=== PATIENT | male | born 1965 | race African-American/Black ===

== ENCOUNTER 2016-05-16 00:53 | Inpatient (IN) | payer MEDICARE, OTHER ==
--- NOTE | 2016-05-16 01:20 | PDOC ---
History of Present Illness - General Chief Complaint: Pain, Acute Stated Complaint: ABD PAIN Time Seen by Provider: 05/16/16 01:12 - History of Present Illness Initial Comments: 05/16/16 01:19 CHIEF COMPLAINT: abd pain HISTORY OF PRESENT ILLNESS: 51 yo M with significant PMH of HTN, HLD, insulin dependent type 2 DM, TIA, chronic pancreatitis, biliary stricture (s/p stent placement) presents to ED with abdominal pain since two days ago. Patient states passed out two days ago and fell down, but but denies any LOC or trauma to his head. Patient denies any fever but reports chills and feeling lightheaded. He also reports chest pain and shortness of breath. Patient states he had not drank alcohol for 7 years but recently started drinking again , including "beers and vodkas"; he is unable to quantify how much he drinks. No recent travel or sick contacts. PAST MEDICAL HISTORY: Denies past medical history FAMILY HISTORY: Denies SOCIAL HISTORY: Current smoker, 1/2 pack daily. Hx of alcohol abuse, "just started drinking again recently". Denies illicit drug use. SURGICAL HISTORY: Denies ALLERGIES: No known drug allergies REVIEW OF SYSTEMS General/Constitutional: Denies fever or chills. HEENT: Denies change in vision. Denies ear pain or discharge. Denies sore throat. Cardiovascular: Chest pain, shortness of breath. Respiratory: Denies cough, wheezing, or hemoptysis. Gastrointestinal: Abdominal pain. Denies nausea, vomiting, diarrhea or constipation. Denies rectal bleeding. Genitourinary: Denies dysuria, frequency, or change in urination. Musculoskeletal: Chronic back pain. Denies joint or muscle swelling or pain. Denies neck or back pain. Skin and breasts: Denies rash or easy bruising. Neurologic: Denies headache, vertigo, loss of consciousness, or loss of sensation. PHYSICAL EXAM General Appearance: Tachycardic to 119. Well-appearing, appropriately dressed. No apparent distress. HEENT: EOMI, PERRLA, normal ENT inspection, normal voice, TMs normal, pharynx normal. No conjunctival pallor. No photophobia, scleral icterus. Neck: Supple. Trachea midline. No tenderness, rigidity, carotid bruit, stridor , lymphadenopathy, or thyromegaly. Respiratory/Chest: Lungs CTAB. Cardiovascular: RRR. S1, S2. Vascular Pulses: Dorsalis-Pedis (R): 2+, Dorsalis-Pedis (L): 2+ Gastrointestinal/Abdominal: Marked tenderness to abdomen, more localized to RLQ , RUQ, and LUQ. Normal bowel sounds. Abdomen soft, non-distended. No tenderness or rebound tenderness. No organomegaly, pulsatile mass, guarding, hernia, hepatomegaly, splenomegaly. Lymphatic: No adenopathy, tenderness. Musculoskeletal/Extremities: Normal inspection. FROM of all extremities, normal capillary refill. Pelvis Stable. No CVA tenderness. No tenderness to extremities, pedal edema, swelling, erythema or deformity. Integumentary: Appropriate color, dry, warm. 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 Fully oriented, alert. Appropriate mood/affect. Motor strength 5/5. No appreciable EOM palsy, facial droop or sensory deficit. Past History - Past Medical History Allergies/Adverse Reactions: Allergies Allergy/AdvReac Type Severity Reaction Status Date / Time atorvastatin calcium Allergy Hives Verified 05/16/16 00:59 [From Lipitor] lisinopril Allergy Verified 05/16/16 00:59 Home Medications: Ambulatory Orders Famotidine [Pepcid] 40 mg PO DAILY 08/15/15 Amlodipine Besylate [Norvasc -] 10 mg PO DAILY 05/16/16 Diazepam 5 mg PO ASDIR PRN 05/16/16 Insulin Glargine,Hum.rec.anlog [Lantus Solostar PEN (NF)] 20 units SQ AM Losartan Potassium [Cozaar -] 50 mg PO DAILY 05/16/16 Oxycodone HCl [Roxicodone] 5 mg PO ASDIR 05/16/16 Anemia: No Asthma: No Cancer: No Cardiac Disorders: Yes (IRREGULAR HEART BEAT) CVA: Yes (TIA) COPD: No CHF: No Dementia: No Diabetes: Yes GI Disorders: Yes (GASTRIC ULCER; BILE DUCT STRICTURE-STENTS) Disorders: No HTN: Yes Hypercholesterolemia: Yes Liver Disease: No Suicide Attempt (Hx): No Seizures: No Thyroid Disease: No - Surgical History Abdominal Surgery: Yes Appendectomy: No Cardiac Surgery: No Cholecystectomy: Yes (BILIARY 3 STENTS) Lung Surgery: No Neurologic Surgery: No Orthopedic Surgery: No - Psycho/Social/Smoking Cessation Hx Anxiety: No Suicidal Ideation: No Smoking Status: No Smoking History: Never smoked Years of Tobacco Use: 30 Have you smoked in the past 12 months: Yes Number of Cigarettes Smoked Daily: 7 Cigars Per Day: 0 'Breaking Loose' booklet given: 12/31/12 Hx Alcohol Use: Yes (beer, vodka) Drug/Substance Use Hx: No Substance Use Type: Alcohol Hx Substance Use Treatment: No *Physical Exam - Vital Signs Last Vital Signs Temp Pulse Resp BP Pulse Ox 98.1 F 119 H 18 136/93 98 05/16/16 01:02 05/16/16 01:02 05/16/16 01:02 05/16/16 01:02 05/16/16 01:02 ED Treatment Course - LABORATORY CBC & Chemistry Diagram: 05/16/16 01:33 05/16/16 01:33 Medical Decision Making - Medical Decision Making 05/16/16 04:43 51 yo M with significant PMH of HTN, HLD, insulin dependent type 2 DM, TIA, biliary stricture (s/p stent placement) presents to ED with abdominal pain since two days ago. -CBC, CMP, PT/INR, Mg, card profile -CXR, EKG DDx includes but is not limited to PE, [place], pancreatitis, appendicitis, mesenteric ischemia, gastroenteritis. Patient tachycardic to 119 with SOB and chest pain, will order chest CTA to r/o PE. Patient's abdomen markedly tender, will order abdomen & pelvis CT to eval for mesenteric ischemia. Labs: WBC 10.6 K+ 3.3 Glucose 365 Bili 1.8 Mg 1.3 -1 mg Mg sulfate IVPB -6 units insulin subQ -NS + 10KCl @ 75cc/hr CT results: IMPRESSION No evidence of a large central pulmonary embolism. Limited exam without arterial phase contrast enhancement of the aorta and aortic branches demonstrates no significant calcified arteriosclerotic narrowing of the mesenteric vessels to suggest mesenteric ischemia. Moderately dilated pancreatic duct consistent with partial obstruction of the pancreatic duct may be due to chronic scarring with multiple calcifications throughout the pancreas consistent with chronic recurrent pancreatitis. Moderately dilated intrahepatic bile ducts and common bile duct consistent with partial high grade obstruction of the distal common bile duct may be due to chronic scarring. If clinically indicated followup outpatient magnetic resonance cholangiopancreatogram MRCP protocol MRI abdomen may be needed. Mild wall thickening of the antropyloric stomach and duodenum consistent with mild infectious or inflammatory gastroduodenitis. Read by: Rome Whitaker MD Will admit for inpatient services for chronic recurrent pancreatitis. Discussed case with admitting MD Stephens who accepts patient to med/surg floor for inpatient services. *DC/Admit/Observation/Transfer Diagnosis at time of Disposition: Chronic alcoholic pancreatitis, Common bile duct (CBD) stricture, Hyperglycemia - Discharge Dispostion Admit: Yes - Referrals Referrals: Domenica Chaves MD [Primary Care Provider] -
--- NOTE | 2016-05-16 01:43 | PDOC ---
[id number] 136/93 98 05/16/16 01:02 05/16/16 01:02 05/16/16 01:02 05/16/16 01:02 05/16/16 01:02 ED Treatment Course - LABORATORY CBC & Chemistry Diagram: 05/16/16 01:33 05/16/16 01:33 Medical Decision Making - Medical Decision Making 05/16/16 01:43 agree with care from HANNAH Guerrier *DC/Admit/Observation/Transfer Diagnosis at time of Disposition: Chronic alcoholic pancreatitis, Common bile duct (CBD) stricture, Hyperglycemia - Referrals Referrals: Domenica Chaves MD [Primary Care Provider] -
[2016-05-16 01:44] LABS: BASOPHIL 0.7 % (0-2.0); EOSINOPHIL 2.8 % (0-4.5); MCH 29.9 pg (25.7-33.7); MCHC 33.5 g/dl (32.0-35.9); MEAN CELL VOLUME 89.2 fl (80-96); MEAN PLT VOLUME 8.3 fl (7.5-11.1); NEUTROPHILS 72.2 % (42.8-82.8); PLATELET COUNT 175 K/MM3 (134-434); RDW 16.6 % (11.9-15.9); WHITE BLOOD COUNT 10.7 K/mm3 (4.0-10.0)
[2016-05-16 01:57] LABS: INR 1.05 (0.82-1.09); PROTHROMBIN TIME (PATIENT) 11.6 SEC (9.98-11.88)
[2016-05-16 01:59] LABS: ACTIVATED PTT 33.8 SECONDS (26.9-34.4)
[2016-05-16] MEDS ORDERED: morphine CARPU-JECT 2 MG/1 ML DISP.SYRIN IVPUSH ONE (02:04)
[2016-05-16] MEDS ORDERED: morphine CARPU-JECT 2 MG/1 ML DISP.SYRIN ONE ×2 (02:10→06:58)
[2016-05-16 02:16] LABS: TROPONIN I < 0.02 ng/ml (0.00-0.05)
[2016-05-16 02:27] LABS: ALBUMIN 3.7 g/dl (3.4-5.0); ANION GAP 14 (8-16); BILIRUBIN,TOTAL 1.8 mg/dL (0.2-1.0); CALCIUM 8.6 mg/dL (8.5-10.1); CO2 26 mmol/L (21-32); SGOT/AST 35 U/L (15-37); SGPT/ALT 62 U/L (12-78); TOT PROT 7.2 g/dl (6.4-8.2)
[2016-05-16 02:28] LABS: ALK PHOS 127 U/L (45-117)
[2016-05-16 02:29] LABS: GLUCOSE,RANDOM 365 mg/dL (74-106)
[2016-05-16] MEDS ORDERED: MAGNESIUM SULF 50% (8.12 MEQ/2 ML-1 GM VIAL) IVPB ONE (02:51)
[2016-05-16] MEDS ORDERED: INSULIN REGULAR HUMAN 100 UNITS/ML *VIAL SQ ONE (02:54)
[2016-05-16] MEDS ORDERED: POTASSIUM CHLORIDE 10 MEQ in SODIUM CHLORIDE 1,000 ML IVPB SCH (03:00)
[2016-05-16] MEDS ORDERED: HYDROmorphone HCL CARPU-JECT 1 MG/1 ML DISP.SYRIN IVPB ONE (03:36)
[2016-05-16] MEDS ORDERED: MAGNESIUM SULF 50% (8.12 MEQ/2 ML-1 GM VIAL) ONE (04:00)
[2016-05-16] MEDS ORDERED: HYDROmorphone HCL CARPU-JECT 2 MG/1 ML DISP.SYRIN ONE (04:00)
[2016-05-16] MEDS ORDERED: INSULIN REGULAR HUMAN 100 UNITS/ML *VIAL ONE (04:02)
--- NOTE | 2016-05-16 05:14 | PN ---
Teaching Attending Note Name of Resident: Jose Charles ATTENDING PHYSICIAN STATEMENT I saw and evaluated the patient. I reviewed the resident's note and discussed the case with the resident. I agree with the resident's findings and plan as documented. SUBJECTIVE: 51 M with pmhx. of chronic pancreatitis, HTN, DM II, TIA, biliary stricture (s/ p stent) who presents with severe abdominal pain. Pain located in the epigastric region, with radiation to bilateral sides. No fevers, chills, cp or pressure. No N/V/D. OBJECTIVE: Physical: VS: Vital Signs Period Temp Pulse Resp BP Sys/Nguyen Pulse Ox Last 24 Hr 98.1 F 90-119 18 136/93 97-98 GEN: NAD, Resting in bed HEENT: NCAT, PERRL CARD: RRR S1, S2 RESP: CTAB ABD: Right upper quadrant tenderness, + Lerner;s. BSX4, Non-Distended EXT: - C/C/E LABS/IMAGING: CBCD WBC 10.7 K/mm3 (4.0-10.0) H 05/16/16 01:33 RBC 4.62 M/mm3 (4.00-5.60) 05/16/16 01:33 Hgb 13.8 GM/dL (11.7-16.9) D 05/16/16 01:33 Hct 41.2 % (35.4-49) 05/16/16 01:33 MCV 89.2 fl (80-96) 05/16/16 01:33 MCHC 33.5 g/dl (32.0-35.9) 05/16/16 01:33 RDW 16.6 % (11.9-15.9) H 05/16/16 01:33 Plt Count 175 K/MM3 (134-434) D 05/16/16 01:33 MPV 8.3 fl (7.5-11.1) 05/16/16 01:33 CMP Sodium 134 mmol/L (136-145) L 05/16/16 01:33 Potassium 3.3 mmol/L (3.5-5.1) L D 05/16/16 01:33 Chloride 94 mmol/L (98-107) L D 05/16/16 01:33 Carbon Dioxide 26 mmol/L (21-32) 05/16/16 01:33 Anion Gap 14 (8-16) 05/16/16 01:33 BUN 9 mg/dL (7-18) D 05/16/16 01:33 Creatinine 1.0 mg/dL (0.7-1.3) 05/16/16 01:33 Creat Clearance w eGFR > 60 (>60) 05/16/16 01:33 Random Glucose 365 mg/dL (74-106) H* D 05/16/16 01:33 Calcium 8.6 mg/dL (8.5-10.1) 05/16/16 01:33 Total Bilirubin 1.8 mg/dL (0.2-1.0) H D 05/16/16 01:33 AST 35 U/L (15-37) D 05/16/16 01:33 ALT 62 U/L (12-78) D 05/16/16 01:33 Alkaline Phosphatase 127 U/L (45-117) H D 05/16/16 01:33 Total Protein 7.2 g/dl (6.4-8.2) 05/16/16 01:33 Albumin 3.7 g/dl (3.4-5.0) 05/16/16 01:33 CARDIAC ENZYMES Creatine Kinase 513 IU/L (39-308) H D 05/16/16 01:33 Troponin I < 0.02 ng/ml (0.00-0.05) 05/16/16 01:33 CT Angio/abd-Mod. Gallbladder distension, mod. dilated panc. duct/intrahepatic ducts bile ducts. Mod CBD dilitation c/w partial high grade obstruction. Gastroduodenitis. ASSESSMENT AND PLAN: 51 M with pmhx of chronic pancreatitis, DMII, TIA, Biliary stricture (s/p stent ) who presents with abdominal pain, found to have biliary stricture and gastroduodenitis. 1.) Abdominal Pain - CBD Obstruction and ?acute choley - RUQ US - Sam grade obstruction of CBD - Sx. Consult - ERCP - GI consult - Morphine prn pain - NPO - Type and Screen/Coags - IVF 2.) Gastroduodenitis - Levaquin/Flagyl 3.) DM - RAISS - FS Q4 4.) Hypokalemia/Hypomagnesemia - Repleted 4.) DVT PPx: Low Risk - SCDs F: IVF E: Trend N: NPO Rest agree with resident note Admit to Med Sx:
[2016-05-16] MEDS ORDERED: morphine CARPU-JECT 2 MG/1 ML DISP.SYRIN IVPUSH PRN (05:37)
--- NOTE | 2016-05-16 06:03 | HP ---
CHIEF COMPLAINT: Abdominal pain. PCP: Domenica Chaves HISTORY OF PRESENT ILLNESS: 51 yo M with significant PMHx of DM, HTN, and chronic pancreatits presents with two day history of abdominal pain. He describes 10/10 constant non-radiating "twisting" epigastric pain. No aggrivating or alleviating factors. Pain also accompanied by 3-4 non bloody loose BM's daily for past 3 days and anorexia. He states that when he drinks water he also gets bilateral flank pain. Was admitted in July 2015 for acute cholecystitis and treated medically but never followed up for removal of gallbladder. Also had billiary stricture stented last year. Recently started drinking ETOH again after 7 mo. abstinence. Denies fever, recent illness, travel , CP, [place], SOB,palpitations, n/v. ER course was notable for: (1) CT abdomen -shows markedly dialated pancreatic duct consistant with partial obstruction and mod dilated intrahepatic bile ducts . (2) CTA - no signs of PE (3) EKG -NSR Recent Travel: Denies PAST MEDICAL HISTORY: DM, HTN , chronic pancreatitis. PAST SURGICAL HISTORY: stents for billiary stricture. Social History: Smokin/2 PPD Alcohol: History of abuse quit for last 7 mo. but restarted 7 days ago. last drink 3 days ago. Drugs: denies Family History: Non contributory. Allergies atorvastatin calcium [From Lipitor] Allergy (Verified 05/16/16 00:59) Hives lisinopril Allergy (Verified 05/16/16 00:59) QUESTIONABLE-SWOLLEN LIPS HOME MEDICATIONS: Home Medications Medication Instructions Recorded Famotidine [Pepcid] 40 mg PO DAILY 08/15/15 Amlodipine Besylate [Norvasc -] 10 mg PO DAILY 05/16/16 Diazepam 5 mg PO ASDIR PRN 05/16/16 Insulin Glargine,Hum.rec.anlog 20 units SQ AM 05/16/16 [Lantus Solostar PEN (NF)] Losartan Potassium [Cozaar -] 50 mg PO DAILY 05/16/16 Oxycodone HCl [Roxicodone] 5 mg PO ASDIR 05/16/16 REVIEW OF SYSTEMS CONSTITUTIONAL: Absent: fever, chills, diaphoresis, generalized weakness, malaise, loss of appetite, weight change HEENT: Absent: rhinorrhea, nasal congestion, throat pain, throat swelling, difficulty swallowing, mouth swelling, ear pain, eye pain, visual changes CARDIOVASCULAR: Absent: chest pain, syncope, palpitations, irregular heart rate, lightheadedness , peripheral edema RESPIRATORY: Absent: cough, shortness of breath, dyspnea with exertion, orthopnea, wheezing, stridor, hemoptysis GASTROINTESTINAL:(+)abdominal pain,diarrhea Absent: , abdominal distension, nausea, vomiting, , constipation, melena, hematochezia GENITOURINARY: Absent: dysuria, frequency, urgency, hesitancy, hematuria, flank pain, genital pain MUSCULOSKELETAL: Absent: myalgia, arthralgia, joint swelling, back pain, neck pain SKIN: Absent: rash, itching, pallor HEMATOLOGIC/IMMUNOLOGIC: Absent: easy bleeding, easy bruising, lymphadenopathy, frequent infections ENDOCRINE: Absent: unexplained weight gain, unexplained weight loss, heat intolerance, cold intolerance NEUROLOGIC: Absent: headache, focal weakness or paresthesias, dizziness, unsteady gait, seizure, mental status changes, bladder or bowel incontinence PSYCHIATRIC: Absent: anxiety, depression, suicidal or homicidal ideation, hallucinations. PHYSICAL EXAMINATION Vital Signs - 24 hr 05/16/16 05/16/16 01:02 04:11 Temperature 98.1 F Pulse Rate 119 H 90 Respiratory 18 Rate Blood Pressure 136/93 O2 Sat by Pulse 98 97 Oximetry (%) GENERAL: Awake, alert, and fully oriented, in mild distress. HEAD: Normal with no signs of trauma. EYES: Pupils equal, round and reactive to light, extraocular movements intact, sclera anicteric, conjunctiva clear. EARS, NOSE, THROAT: Ears normal, nares patent, oropharynx clear without exudates. Moist mucous membranes. NECK: Normal range of motion, supple without lymphadenopathy, JVD, or masses. LUNGS: Breath sounds equal, clear to auscultation bilaterally. No wheezes, and no crackles. No accessory muscle use. HEART: Regular rate and rhythm, normal S1 and S2 without murmur, rub or gallop. ABDOMEN: Soft, significant epigastric and RUQ tenderness, (+)webb sign, mildlydistended, normoactive bowel sounds, no guarding, no rebound, no masses. No hepatomegaly or splenomegaly. MUSCULOSKELETAL: Normal range of motion at all joints. No bony deformities or tenderness. No CVA tenderness. UPPER EXTREMITIES: 2+ pulses, warm, well-perfused. No cyanosis. No clubbing. No peripheral edema. LOWER EXTREMITIES: 2+ pulses, warm, well-perfused. No calf tenderness. No peripheral edema. NEUROLOGICAL: Cranial nerves II-XII intact. Normal speech. gait not observed PSYCHIATRIC: Cooperative. Good eye contact. Appropriate mood and affect. SKIN: Warm, dry, normal turgor, no rashes or lesions noted. Laboratory Results - last 24 hr 05/16/16 05/16/16 05/16/16 01:33 01:33 01:33 WBC 10.7 H RBC 4.62 Hgb 13.8 D Hct 41.2 MCV 89.2 MCHC 33.5 RDW 16.6 H Plt Count 175 D MPV 8.3 Neutrophils % 72.2 D Lymphocytes % 19.8 D Monocytes % 4.5 Eosinophils % 2.8 Basophils % 0.7 INR 1.05 PTT (Actin FS) 33.8 Sodium 134 L Potassium 3.3 L D Chloride 94 L D Carbon Dioxide 26 Anion Gap 14 BUN 9 D Creatinine 1.0 Creat Clearance w eGFR > 60 Random Glucose 365 H* D Calcium 8.6 Magnesium Total Bilirubin 1.8 H D AST 35 D ALT 62 D Alkaline Phosphatase 127 H D Creatine Kinase Creatine Kinase Index CK-MB (CK-2) CK-MB (CK-2) Rel Index Troponin I Total Protein 7.2 Albumin 3.7 Lipase Blood Type Antibody Screen 05/16/16 05/16/16 05/16/16 01:33 01:33 01:33 WBC RBC Hgb Hct MCV MCHC RDW Plt Count MPV Neutrophils % Lymphocytes % Monocytes % Eosinophils % Basophils % INR PTT (Actin FS) Sodium Potassium Chloride Carbon Dioxide Anion Gap BUN Creatinine Creat Clearance w eGFR Random Glucose Calcium Magnesium 1.3 L D Total Bilirubin AST ALT Alkaline Phosphatase Creatine Kinase 513 H D Creatine Kinase Index 0.5 CK-MB (CK-2) 2.608 CK-MB (CK-2) Rel Index Troponin I < 0.02 Total Protein Albumin Lipase Blood Type O POSITIVE Antibody Screen Negative 05/16/16 05/16/16 01:33 01:33 WBC RBC Hgb Hct MCV MCHC RDW Plt Count MPV Neutrophils % Lymphocytes % Monocytes % Eosinophils % Basophils % INR PTT (Actin FS) Sodium Potassium Chloride Carbon Dioxide Anion Gap BUN Creatinine Creat Clearance w eGFR Random Glucose Calcium Magnesium Total Bilirubin AST ALT Alkaline Phosphatase Creatine Kinase Creatine Kinase Index CK-MB (CK-2) CK-MB (CK-2) Rel Index Cancelled Troponin I Total Protein Albumin Lipase 155 Blood Type Antibody Screen ASSESSMENT/PLAN: 51 yo M with significant PMHx of DM, HTN, and chronic pancreatitis admitted for possible gastroduodenitis and cholecystits. Neuro: * Pain control 1 gm morphine Q4PRN * AAO x3 Pulm: * Supplemental O2 PRN * maintain O2 sat >90% CV: * BP home meds held for possible surgery * will resume once seen by GI and surgery. GI: pancreatitis/ cholecystitis. * Seen by Dr. Torres in past --consulted * CT abdomen shows markedly dialated pancreatic duct consistent with partial obstruction and mod dilated intrahepatic bile ducts. Gastroduodenitis. * RUQ US odered to r/o acute cholecystitis. * Surgery consulted-- Dr. Andujar * Repeat Amylase and lipase. * NPO for now. * Started on Levaquin and Flagyl for gastroduodenitis seen on CT. ENDO: DM * ADA diet after seen by surgery * BGM ACHS * ISS with novolog ACHS. DVT/ GI prophylaxis: * Heparin on hold for possible procedure SCD bilat. * protonix 40 mg HS F/E/N * LR @83 ml/hr.start multivitamin once eating given recent h/o ETOH abuse. * repeat AM labs. * NPO for now. DISPO: Admitt to med/Surg Problem List - Problem (1) Chronic alcoholic pancreatitis (2) Gastroduodenitis Code(s): K29.90 - GASTRODUODENITIS, UNSPECIFIED, WITHOUT BLEEDING (3) Hyperglycemia (4) Cholecystitis, acute (5) Diabetes (6) HTN (hypertension) (7) Hypokalemia (8) Hypomagnesemia (9) DVT prophylaxis Visit type - Emergency Visit Emergency Visit: Yes Care time: The patient presented to the Emergency Department on the above date and was hospitalized for further evaluation of their emergent condition. - New Patient This patient is new to me today: Yes Date on this admission: 05/16/16 - Critical Care Critical Care patient: No
[2016-05-16] MEDS ORDERED: LACTATED RINGERS SOLUTION 1,000 ML IV SCH ×2 (06:15→10:36)
[2016-05-16] MEDS ORDERED: KCL 10 MEQ IVPB 100 ML IVPB ONE (06:15)
[2016-05-16] MEDS ORDERED: METRONIDAZOLE 500 MG PREMIXED 100 ML IVPB ONE (06:49)
[2016-05-16] MEDS: METRONIDAZOLE 500 MG PREMIXED 100 ML IVPB SCH ×2 (06:55→08:51)
[2016-05-16 07:56] LABS: INR 1.06 (0.82-1.09); PROTHROMBIN TIME (PATIENT) 11.7 SEC (9.98-11.88)
[2016-05-16 07:59] LABS: ACTIVATED PTT 31.4 SECONDS (26.9-34.4)
--- NOTE | 2016-05-16 08:47 | PN ---
Addendum entered and electronically signed by Will Delacruz RES 05/16/16 16:12 : Spoke with patient again at approximately 3:30 PM. Pt was tolerating clear liquid diet. No issues with diet. Mild RUQ pain upon palpation. Pt states he will be refusing labs tomorrow. I spoke to him and told him the importance of the labs and he stated that if he did not feel well tomorrow he would be ok with getting labs done but at this time will most likely be refusing blood draws. Original Note: <Will Delacruz - Last Filed: 05/16/16 11:23> Physical Exam: SUBJECTIVE: Patient seen and examined at bedside. Pt feels better currently and says he is very hungry. States he still has some abdominal pain and during ultrasound he was having pain when probe was pressed into abdomen. He states he began drinking alcohol again about a week ago due to stress (after not drinking for 7 months). Pt denies N/V/F/C, SOB, CP currently. OBJECTIVE: Vital Signs Temperature 98.6 F 05/16/16 09:00 Pulse Rate 100 H 05/16/16 09:00 Respiratory Rate 18 05/16/16 09:00 Blood Pressure 141/91 05/16/16 09:00 O2 Sat by Pulse Oximetry (%) 98 05/16/16 07:05 GENERAL: The patient is awake, alert, and fully oriented, in no acute distress. HEAD: Normal with no signs of trauma. EYES: PERRL, extraocular movements intact. No ptosis. ENT: Ears normal, nares patent, moist mucous membranes. NECK: Trachea midline, full range of motion LUNGS: Breath sounds equal, clear to auscultation bilaterally, no wheezes, no crackles, no accessory muscle use. HEART: Regular rate and rhythm, S1, S2 without murmur, rub or gallop. ABDOMEN: mild tenderness in epigastric region, normoactive bowel sounds EXTREMITIES: 2+ pulses, warm, well-perfused, no edema. NEUROLOGICAL: Normal speech, gait not observed. PSYCH: Normal mood, normal affect. SKIN: Warm, dry, normal turgor, no rashes or lesions noted Laboratory Results - last 24 hr 05/16/16 05/16/16 07:20 07:20 INR 1.06 PTT (Actin FS) 31.4 Lactic Acid 1.627 CBCD WBC 10.7 K/mm3 (4.0-10.0) H 05/16/16 01:33 RBC 4.62 M/mm3 (4.00-5.60) 05/16/16 01:33 Hgb 13.8 GM/dL (11.7-16.9) D 05/16/16 01:33 Hct 41.2 % (35.4-49) 05/16/16 01:33 MCV 89.2 fl (80-96) 05/16/16 01:33 MCHC 33.5 g/dl (32.0-35.9) 05/16/16 01:33 RDW 16.6 % (11.9-15.9) H 05/16/16 01:33 Plt Count 175 K/MM3 (134-434) D 05/16/16 01:33 MPV 8.3 fl (7.5-11.1) 05/16/16 01:33 CMP Sodium 134 mmol/L (136-145) L 05/16/16 01:33 Potassium 3.3 mmol/L (3.5-5.1) L D 05/16/16 01:33 Chloride 94 mmol/L (98-107) L D 05/16/16 01:33 Carbon Dioxide 26 mmol/L (21-32) 05/16/16 01:33 Anion Gap 14 (8-16) 05/16/16 01:33 BUN 9 mg/dL (7-18) D 05/16/16 01:33 Creatinine 1.0 mg/dL (0.7-1.3) 05/16/16 01:33 Creat Clearance w eGFR > 60 (>60) 05/16/16 01:33 Random Glucose 365 mg/dL (74-106) H* D 05/16/16 01:33 Calcium 8.6 mg/dL (8.5-10.1) 05/16/16 01:33 Total Bilirubin 1.8 mg/dL (0.2-1.0) H D 05/16/16 01:33 AST 35 U/L (15-37) D 05/16/16 01:33 ALT 62 U/L (12-78) D 05/16/16 01:33 Alkaline Phosphatase 127 U/L (45-117) H D 05/16/16 01:33 Total Protein 7.2 g/dl (6.4-8.2) 05/16/16 01:33 Albumin 3.7 g/dl (3.4-5.0) 05/16/16 01:33 CARDIAC ENZYMES Creatine Kinase 513 IU/L (39-308) H D 05/16/16 01:33 Troponin I < 0.02 ng/ml (0.00-0.05) 05/16/16 01:33 Imaging: CT abd: Image reviewed, report reviewed CTA chest: image reviewed, report reviewed RUQ US: image reviewed, report reviewed Active Medications Generic Name Dose Route Start Last Admin Trade Name Freq PRN Reason Stop Dose Admin Metronidazole 100 mls @ 100 mls/hr 05/16/16 06:00 05/16/16 06:55 Flagyl 500mg Premixed Ivpb - IVPB 100 mls/hr Q6H-IV DONOVAN Administration Levofloxacin 150 mls @ 150 mls/hr 05/16/16 06:00 Levaquin 750 Mg Premixed Ivpb - IVPB DAILY DONOVAN Lactated Ringer's 1,000 mls @ 83 mls/hr 05/16/16 06:15 05/16/16 06:34 Lactated Ringers Solution IV 83 mls/hr ASDIR DONOVAN Administration Morphine Sulfate 1 mg 05/16/16 05:37 05/16/16 07:04 Morphine Injection - IVPUSH 1 mg Q4H PRN Administration PAIN Pantoprazole Sodium 40 mg 05/16/16 10:00 Protonix - PO DAILY DONOVAN ASSESSMENT/PLAN: 51 y/o M with sig PMH of DM, HTN, chronic pancreatitis, biliary stricture s/p stent (2015), presented to ER with abd pain for 3 days. Admitted for acute on chronic pancreatits vs cholecystitis. -Abd pain secondary to Acute on chronic pancreatitis vs acute cholecystitis vs dilated CBD -Cholecystitis unlikely at this time due to no evidence of cholecystitis ( some sludge and mild distention noted on CT abd) or gallstones on RUQ U/S and CT abd. -Acute on chronic pancreatitis - pt has hx of pancreatitis, multiple calcifications in pancreas, dilated pancreatic duct (5cm) seen in CT abd -Lipase 155, but may be wnl due to chronic pancreatitis -CBD dilated at 11 mm as seen on RUQ US and CT abd -possibly ERCP or MRCP as per GI recommendations -GI consulted -Surgery on board -Will need lap reinaldo at tertiary center. -NPO currently, LR @ 150 ml/hr -ABx stopped as pt is afebrile, white count slightly elevated, does not seem like an infective process at this time -pain control with morphine 1 mg iv q4h prn -HTN -home meds held currently due to NPO -DM -ISS, BGMs bid while NPO -DVT ppx -SCDs, Hep held -GI ppx -Protonix -FEN -LR @ 150 ml/hr -Hypokalemia (repleted), Hyponatremia, hypochloremia, monitor lytes -NPO -Dispo: -Monitor floors Problem List - Problems (1) Chronic alcoholic pancreatitis Code(s): K86.0 - ALCOHOL-INDUCED CHRONIC PANCREATITIS (2) Common bile duct (CBD) stricture Code(s): K83.1 - OBSTRUCTION OF BILE DUCT (3) HTN (hypertension) Code(s): I10 - ESSENTIAL (PRIMARY) HYPERTENSION Qualifiers: Hypertension type: essential hypertension Qualified Code(s): I10 - Essential (primary) hypertension (4) Hyperglycemia Code(s): R73.9 - HYPERGLYCEMIA, UNSPECIFIED (5) Hypokalemia Code(s): E87.6 - HYPOKALEMIA (6) Hypomagnesemia Code(s): E83.42 - HYPOMAGNESEMIA (7) Abdominal pain Code(s): R10.9 - UNSPECIFIED ABDOMINAL PAIN (8) Hyponatremia Code(s): E87.1 - HYPO-OSMOLALITY AND HYPONATREMIA Visit type - Emergency Visit Emergency Visit: Yes ED Registration Date: 05/16/16 Care time: The patient presented to the Emergency Department on the above date and was hospitalized for further evaluation of their emergent condition. - New Patient This patient is new to me today: Yes Date on this admission: 05/16/16 - Critical Care Critical Care patient: No <Mani Sweeney - Last Filed: 05/16/16 12:20> Physical Exam: ATTENDING PHYSICIAN STATEMENT I saw and evaluated the patient. I reviewed the resident's note and discussed the case with the resident. I agree with the resident's findings and plan as documented. SUBJECTIVE: seen and evaluated at the bedside OBJECTIVE: mild mid-epigastric tenderness to palpation; no guarding no rebound ASSESSMENT AND PLAN: 51 yo M with significant PMHx of DM, HTN, and chronic pancreatits admitted for severe abdominal pain Abd Pain -was initially thought to be acute on chronic pancreatitis (would not expect marked elevated lipase with chronic pancreatitis) -GI consult greatly appreciated; GI attending believes that because of the rapidity of improvement that most likely cause was gastritis -now on liquid diet and to advance to low fat diet for dinner -surgery consult greatly appreciated as well
[2016-05-16] MEDS ORDERED: HEPARIN NA (PORCINE) 5,000 UNITS/ML 1ML VIAL SQ SCH (10:00)
[2016-05-16] MEDS: LEVOFLOXACIN 750 MG IVPB 150 ML IVPB SCH ×2 (10:19→10:20)
[2016-05-16] MEDS: PANTOPRAZOLE 40 MG TABLET (FP) PO SCH (10:19)
--- NOTE | 2016-05-16 11:00 | CONSULT ---
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 (transient left hemiparesis in 1998) Cardio/Vascular: Yes: HTN, Hyperlipdemia Gastrointestinal: Yes: Pancreatitis, Peptic Ulcer Disease, Other (recurrent choledocholithiasis, biliary pancreatitis and CBD stricture) Musculoskeletal: Yes: Chronic low back pain (disabled by lumbar disc disease) Endocrine: Yes: Diabetes Mellitus (insulin dependent) - Past Surgical History Past Surgical History: Yes: Upper Endoscopy - Alcohol/Substance Use Hx Alcohol Use: Yes (beer, vodka) - Smoking History Smoking history: Never smoked Have you smoked in the past 12 months: Yes Aproximately how many cigarettes per day: 7 - Social History Usual Living Arrangement: With Significant Other ADL: Independent 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 History of Recent Travel: No Home Medications - Allergies Allergies/Adverse Reactions: Allergies Allergy/AdvReac Type Severity Reaction Status Date / Time atorvastatin calcium Allergy Hives Verified 05/16/16 00:59 [From Lipitor] lisinopril Allergy Verified 05/16/16 00:59 - Home Medications Home Medications: Ambulatory Orders Famotidine [Pepcid] 40 mg PO DAILY 08/15/15 Amlodipine Besylate [Norvasc -] 10 mg PO DAILY 05/16/16 Diazepam 5 mg PO ASDIR PRN 05/16/16 Insulin Glargine,Hum.rec.anlog [Lantus Solostar PEN (NF)] 20 units SQ AM Losartan Potassium [Cozaar -] 50 mg PO DAILY 05/16/16 Oxycodone HCl [Roxicodone] 5 mg PO ASDIR 05/16/16 Family Disease History - Family Disease History Family Disease History: Diabetes: Father (CVA, OMS), Mother, Heart Disease: Father, CA: Son (Anderson Sarcoma), Other: Father Review of Systems - Review of Systems Constitutional: denies: Chills, Fever Neck: reports: No Symptoms Cardiovascular: denies: Chest Pain Respiratory: denies: Cough Gastrointestinal: reports: Abdominal Pain. denies: Nausea, Vomiting Genitourinary: reports: No Symptoms Neurological: denies: Change in LOC Pain Intensity: 4 Physical Exam Vital Signs: Vital Signs Temperature 98.4 F 05/16/16 07:05 Pulse Rate 98 H 05/16/16 07:05 Respiratory Rate 17 05/16/16 07:05 Blood Pressure 131/78 05/16/16 07:05 O2 Sat by Pulse Oximetry (%) 98 05/16/16 07:05 Constitutional: Yes: No Distress, Calm Neck: Yes: Supple Cardiovascular: Yes: Regular Rate and Rhythm Respiratory: Yes: Diminished Gastrointestinal: Yes: Soft, Tenderness (Minimal epigastric tenderness). No: Distention, Tenderness, Rebound Neurological: Yes: Alert, Oriented Labs: CBC,CMP WBC 10.7 K/mm3 (4.0-10.0) H 05/16/16 01:33 RBC 4.62 M/mm3 (4.00-5.60) 05/16/16 01:33 Hgb 13.8 GM/dL (11.7-16.9) D 05/16/16 01:33 Hct 41.2 % (35.4-49) 05/16/16 01:33 MCV 89.2 fl (80-96) 05/16/16 01:33 MCHC 33.5 g/dl (32.0-35.9) 05/16/16 01:33 RDW 16.6 % (11.9-15.9) H 05/16/16 01:33 Plt Count 175 K/MM3 (134-434) D 05/16/16 01:33 MPV 8.3 fl (7.5-11.1) 05/16/16 01:33 Neutrophils % 72.2 % (42.8-82.8) D 05/16/16 01:33 Lymphocytes % 19.8 % (8-40) D 05/16/16 01:33 Monocytes % 4.5 % (3.8-10.2) 05/16/16 01:33 Eosinophils % 2.8 % (0-4.5) 05/16/16 01:33 Basophils % 0.7 % (0-2.0) 05/16/16 01:33 Sodium 134 mmol/L (136-145) L 05/16/16 01:33 Potassium 3.3 mmol/L (3.5-5.1) L D 05/16/16 01:33 Chloride 94 mmol/L (98-107) L D 05/16/16 01:33 Carbon Dioxide 26 mmol/L (21-32) 05/16/16 01:33 Anion Gap 14 (8-16) 05/16/16 01:33 BUN 9 mg/dL (7-18) D 05/16/16 01:33 Creatinine 1.0 mg/dL (0.7-1.3) 05/16/16 01:33 Creat Clearance w eGFR > 60 (>60) 05/16/16 01:33 Random Glucose 365 mg/dL (74-106) H* D 05/16/16 01:33 Lactic Acid 1.627 mmol/L (0.4-2.0) 05/16/16 07:20 Calcium 8.6 mg/dL (8.5-10.1) 05/16/16 01:33 Magnesium 1.3 mg/dL (1.8-2.4) L D 05/16/16 01:33 Total Bilirubin 1.8 mg/dL (0.2-1.0) H D 05/16/16 01:33 AST 35 U/L (15-37) D 05/16/16 01:33 ALT 62 U/L (12-78) D 05/16/16 01:33 Alkaline Phosphatase 127 U/L (45-117) H D 05/16/16 01:33 Creatine Kinase 513 IU/L (39-308) H D 05/16/16 01:33 Creatine Kinase Index 0.5 % (0.0-5.0) 05/16/16 01:33 CK-MB (CK-2) 2.608 ng/ml (0.5-3.6) 05/16/16 01:33 CK-MB (CK-2) Rel Index Cancelled 05/16/16 01:33 Troponin I < 0.02 ng/ml (0.00-0.05) 05/16/16 01:33 Total Protein 7.2 g/dl (6.4-8.2) 05/16/16 01:33 Albumin 3.7 g/dl (3.4-5.0) 05/16/16 01:33 Lipase 155 U/L (73-393) 05/16/16 01:33 Imaging - Results Cat Scan: Report Reviewed, Image Reviewed Ultrasound: Report Reviewed, Image Reviewed Problem List - Problems (1) Chronic alcoholic pancreatitis Code(s): K86.0 - ALCOHOL-INDUCED CHRONIC PANCREATITIS (2) Common bile duct (CBD) stricture Code(s): K83.1 - OBSTRUCTION OF BILE DUCT (3) Gastroduodenitis Code(s): K29.90 - GASTRODUODENITIS, UNSPECIFIED, WITHOUT BLEEDING (4) Choledocholithiasis Code(s): K80.50 - CALCULUS OF BILE DUCT W/O CHOLANGITIS OR CHOLECYST W/O OBST Assessment/Plan 51 male with chronic ETOH abuse Was sober for 7 months but has recently started actively drinking again KNown to have chronic pancreatitis per medical history Has had ductal stents in the past by Dr Johnson/GI CT and U/S show dilated pancreatic duct and CBD No evidence of cholecystitis; + gallbladder polyp Recommend MRCP GI evaluation- possible ERCP if CBD stone evident No emergent cholecystectomy needed Would recommend patient have a cholecystectomy at a tertiary care center at a later date as patient has significant risk He agrees with the plan
[2016-05-16 11:05] VITALS: BMI 20.6
--- NOTE | 2016-05-16 11:58 | CON.GI ---
Consult Consult Specialty:: Gastroenetrology Referred by:: Dr Cooney Reason for Consultation:: Pancreatitis - History of Present Illness Chief Complaint: Abdominal pain associated with resumption of alcohol usage. History of Present Illness: 51M with h/o chronic calcific pancreatitis most likely related to alcohol has developed severe abdominal pain in association with resumption of alcohol usage after a 7 month abstension. I last saw him in 08/14 when I placed a CBD stent for a distal bile duct stricture. He followed up with Dr Johnson who he rreports removed the stent. His stricture was first discovered by Dr West at [facility] in 2010 and stented. he also underwent EUS and FNA to exclude pancreatic cancer. He has had multiple ERCPs and repeated stenting with Dr West and my associate Dr Sonido Johnson since then. Dr Johnson also did a cholangioscopy and biopsy of the bile duct stricture on 07/16/13. No malignancy was found. He has a GB polyps but no stones on current imaging. He is currently pain free and very hungry. He tells me that his son had a recent imaging at [facility] that raises the possibility of recurrence of his Anderson sarcoma and awaits a biopsy. He has not yet had a colonoscopy and denies a FH of colon cancer. He denies constipation, altered bowel habits or bleeding. 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: TIA (transient left hemiparesis in 1998) Cardio/Vascular: Yes: HTN, Hyperlipdemia Gastrointestinal: Yes: Pancreatitis (chronic recurring calcific alcoholic pancreatitis vs biliary pancreatitis), Peptic Ulcer Disease, Other (recurrent choledocholithiasis, biliary pancreatitis and CBD stricture) Hepatobiliary: Yes: Other (CBD stricture) Musculoskeletal: Yes: Chronic low back pain (disabled by lumbar disc disease) Endocrine: Yes: Diabetes Mellitus (insulin dependent) - Past Surgical History Past Surgical History: Yes: Upper Endoscopy Additional Surgical History: Multiple ERCP with sphincteorotomies and stent insertions, choledocoscopy. 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 Place of : [facility] History of Recent Travel: No Home Medications - Allergies Allergies/Adverse Reactions: Allergies Allergy/AdvReac Type Severity Reaction Status Date / Time atorvastatin calcium Allergy Hives Verified 05/16/16 00:59 [From Lipitor] lisinopril Allergy Verified 05/16/16 00:59 - Home Medications Home Medications: Ambulatory Orders Famotidine [Pepcid] 40 mg PO DAILY 08/15/15 Amlodipine Besylate [Norvasc -] 10 mg PO DAILY 05/16/16 Diazepam 5 mg PO ASDIR PRN 05/16/16 Insulin Glargine,Hum.rec.anlog [Lantus Solostar PEN (NF)] 20 units SQ AM Losartan Potassium [Cozaar -] 50 mg PO DAILY 05/16/16 Oxycodone HCl [Roxicodone] 5 mg PO ASDIR 05/16/16 Family Disease History - Family Disease History Family Disease History: Diabetes: Father (CVA, OMS), Mother, Heart Disease: Father, CA: Son (Anderson Sarcoma), Other: Father Review of Systems - Review of Systems Constitutional: reports: No Symptoms Eyes: reports: No Symptoms HENT: reports: No Symptoms Neck: reports: Stiffness Respiratory: reports: No Symptoms Gastrointestinal: reports: Abdominal Pain Musculoskeletal: reports: Back Pain Neurological: reports: No Symptoms Physical Exam-GI Vital Signs: Vital Signs Temperature 98.6 F 05/16/16 09:00 Pulse Rate 100 H 05/16/16 09:00 Respiratory Rate 18 05/16/16 09:00 Blood Pressure 141/91 05/16/16 09:00 O2 Sat by Pulse Oximetry (%) 100 05/16/16 09:00 CBC,CMP WBC 10.7 K/mm3 (4.0-10.0) H 05/16/16 01:33 RBC 4.62 M/mm3 (4.00-5.60) 05/16/16 01:33 Hgb 13.8 GM/dL (11.7-16.9) D 05/16/16 01:33 Hct 41.2 % (35.4-49) 05/16/16 01:33 MCV 89.2 fl (80-96) 05/16/16 01:33 MCHC 33.5 g/dl (32.0-35.9) 05/16/16 01:33 RDW 16.6 % (11.9-15.9) H 05/16/16 01:33 Plt Count 175 K/MM3 (134-434) D 05/16/16 01:33 MPV 8.3 fl (7.5-11.1) 05/16/16 01:33 Neutrophils % 72.2 % (42.8-82.8) D 05/16/16 01:33 Lymphocytes % 19.8 % (8-40) D 05/16/16 01:33 Monocytes % 4.5 % (3.8-10.2) 05/16/16 01:33 Eosinophils % 2.8 % (0-4.5) 05/16/16 01:33 Basophils % 0.7 % (0-2.0) 05/16/16 01:33 Sodium 134 mmol/L (136-145) L 05/16/16 01:33 Potassium 3.3 mmol/L (3.5-5.1) L D 05/16/16 01:33 Chloride 94 mmol/L (98-107) L D 05/16/16 01:33 Carbon Dioxide 26 mmol/L (21-32) 05/16/16 01:33 Anion Gap 14 (8-16) 05/16/16 01:33 BUN 9 mg/dL (7-18) D 05/16/16 01:33 Creatinine 1.0 mg/dL (0.7-1.3) 05/16/16 01:33 Creat Clearance w eGFR > 60 (>60) 05/16/16 01:33 Random Glucose 365 mg/dL (74-106) H* D 05/16/16 01:33 Lactic Acid 1.627 mmol/L (0.4-2.0) 05/16/16 07:20 Calcium 8.6 mg/dL (8.5-10.1) 05/16/16 01:33 Magnesium 1.3 mg/dL (1.8-2.4) L D 05/16/16 01:33 Total Bilirubin 1.8 mg/dL (0.2-1.0) H D 05/16/16 01:33 AST 35 U/L (15-37) D 05/16/16 01:33 ALT 62 U/L (12-78) D 05/16/16 01:33 Alkaline Phosphatase 127 U/L (45-117) H D 05/16/16 01:33 Creatine Kinase 513 IU/L (39-308) H D 05/16/16 01:33 Creatine Kinase Index 0.5 % (0.0-5.0) 05/16/16 01:33 CK-MB (CK-2) 2.608 ng/ml (0.5-3.6) 05/16/16 01:33 CK-MB (CK-2) Rel Index Cancelled 05/16/16 01:33 Troponin I < 0.02 ng/ml (0.00-0.05) 05/16/16 01:33 Total Protein 7.2 g/dl (6.4-8.2) 05/16/16 01:33 Albumin 3.7 g/dl (3.4-5.0) 05/16/16 01:33 Lipase 155 U/L (73-393) 05/16/16 01:33 Hepatic Panel Total Bilirubin 1.8 mg/dL (0.2-1.0) H D 05/16/16 01:33 AST 35 U/L (15-37) D 05/16/16 01:33 ALT 62 U/L (12-78) D 05/16/16 01:33 Alkaline Phosphatase 127 U/L (45-117) H D 05/16/16 01:33 Albumin 3.7 g/dl (3.4-5.0) 05/16/16 01:33 Current Medications Generic Name Dose Route Start Last Admin Trade Name Freq PRN Reason Stop Dose Admin Lactated Ringer's 1,000 mls @ 150 mls/hr 05/16/16 10:36 Lactated Ringers Solution IV ASDIR DONOVAN Influenza Virus Vaccine 45 mcg 05/16/16 11:18 Fluvirin IM 05/16/16 11:19 .ONCE ONE Insulin Aspart 1 vial 05/16/16 11:45 Novolog Vial Sliding Scale - SQ BID DONOVAN Protocol Morphine Sulfate 1 mg 05/16/16 05:37 05/16/16 07:04 Morphine Injection - IVPUSH 1 mg Q4H PRN Administration PAIN Pantoprazole Sodium 40 mg 05/16/16 10:00 05/16/16 10:19 Protonix - PO 40 mg DAILY DONOVAN Administration Constitutional: Yes: Calm Eyes: Yes: Conjunctiva Clear HENT: Yes: Normocephalic Neck: Yes: Supple Cardiovascular: Yes: Regular Rate and Rhythm Respiratory: Yes: CTA Bilaterally Gastrointestinal Inspection: Yes: WNL ...Auscultate: Yes: Normoactive Bowel Sounds ...Palpate: Yes: Soft, Other (nontender) ...Rectal Exam: Yes: Deferred (as patient declined) Labs: INR, PTT INR 1.06 (0.82-1.09) 05/16/16 07:20 Laboratory Tests 02/08/11 07/16/12 05/19/14 07:38 09:40 15:35 WBC Hgb Plt Count INR BUN Creatinine Alkaline Phosphatase 77 75 243 H D Total Bilirubin AST ALT Lipase 05/26/14 08/15/15 08/18/15 11:35 17:33 08:00 WBC Hgb Plt Count INR BUN Creatinine Alkaline Phosphatase 168 H D 386 H D 302 H Total Bilirubin AST ALT Lipase 05/16/16 05/16/16 05/16/16 01:33 01:33 01:33 WBC 10.7 H Hgb 13.8 D Plt Count 175 D INR 1.05 BUN 9 D Creatinine 1.0 Alkaline Phosphatase 127 H D Total Bilirubin 1.8 H D AST 35 D ALT 62 D Lipase 05/16/16 01:33 WBC Hgb Plt Count INR BUN Creatinine Alkaline Phosphatase Total Bilirubin AST ALT Lipase 155 Imaging - Results Cat Scan: Image Reviewed (dilated CBD and pancreatic ducts, no overt acute pancreatitis but has calcifications consistent chronic pancreatitis) Ultrasound: Image Reviewed (GB polyp CBD 11mm) Assessment/Plan Suspect that pain was more likely alcoholic gastritis than pancreatitis given rapid resolution and lack of evidence of inflammation on imaging and chemistries. He declines MRCP to assess stricture status claiming claustrophobia. Agrees to followup in our office to arrange open MRCP and to arrange colonoscopy for cancer screening. Will advance diet. Can discharge if tolerated. Would empirically continue his PPI. I emphasized the need to absolutely abstain from alcohol. He claims his last alcohol intake was over 8 days ago and he is free of any evidence of withdrawal symptoms.
--- NOTE | 2016-05-16 12:33 | EKG ---
Test Reason : Blood Pressure : / mmHG Vent. Rate : 117 BPM Atrial Rate : 117 BPM P-R Int : 134 ms QRS Dur : 082 ms QT Int : 358 ms P-R-T Axes : 066 039 071 degrees QTc Int : 499 ms SINUS TACHYCARDIA POSSIBLE LEFT ATRIAL ENLARGEMENT BORDERLINE ECG WHEN COMPARED WITH ECG OF 15-AUG-2015 16:19, NO SIGNIFICANT CHANGE WAS FOUND Confirmed by MATT BLACK MD ([id number]) on 05/16/2016 12:33:25 PM Referred By: Confirmed By:MATT BLACK MD
[2016-05-16] MEDS: INSULIN SLIDING SCALE (NOVOLOG) 1 VIAL SQ SCH ×2 (12:47→17:20)
[2016-05-16] MEDS: LACTATED RINGERS SOLUTION 1,000 ML IV SCH ×2 (12:47→17:24)
[2016-05-16] MEDS ORDERED: INFLUENZA VACCINE 45 MCG/0.5 ML (MDV 16-17) IM ONE (13:00)
[2016-05-17] MEDS: INSULIN SLIDING SCALE (NOVOLOG) 1 VIAL SQ SCH (06:20)
[2016-05-17] MEDS: LACTATED RINGERS SOLUTION 1,000 ML IV SCH (06:22)
[2016-05-17 06:51] VITALS: BP 124/76; PULSE 75; TEMP 98.2
--- NOTE | 2016-05-17 08:48 | MSN ---
Progress Note (short form) - Note Progress Note: CC: Abdominal pain x2 days SUBJECTIVE: Pt seen and examined at bedside while eating breakfast. IRINA overnight and pt has no complaints this morning. Pt is currently tolerating PO meal and states he ate a big meal for dinner last night w/o nausea, vomiting, or pain post meal. +1 BM this AM. Pt wants to be discharged today. He refused AM labs. Denies fevers, chills, CP, SOB, nausea, vomiting, diarrhea,, constipation, abdominal pain, dysuria, frequency, or hematuria. OBJECTIVE: Vital Signs Temperature 98.2 F 05/17/16 06:00 Pulse Rate 75 05/17/16 06:00 Respiratory Rate 16 05/17/16 06:00 Blood Pressure 124/76 05/17/16 06:00 O2 Sat by Pulse Oximetry (%) 100 05/16/16 21:00 General: AAOx3. NAD Neck: No JVD Heart: Regular rate and rhythm. + S1/S2 heard. No murmurs/rubs/gallops Lungs: CTAB Abdomen: Normoactive bowel sounds 4/4 quadrants. TTP in epigastrium/RUQ/LUQ but improved from yesterday. Extremities: No edema in LE CBC, BMP 05/16/16 01:33 05/16/16 01:33 CT abdomen: dilated CBD/pancreatic ducts with chronic calcifications of pancreas A/P: Pt is a 51 yo M with a PMHx of HTN, DM, chronic pancreatitis, and biliary stent placement, who presented to the ED c/o 10/10 epigastric abdominal pain and nonbloody, loose BMs for ~2 days. Pt is a previous alcoholic who recently started drinking again ~1 week ago s/p abstinence for 7 months. Pt admitted for further management and observation. 1. Acute gastritis vs. acute pancreatitis -Improving -Lipase 155, Alk Phosp 127 on admission -GI consult appreciated -Pt denied BARRY, MRCP, and colonoscopy while inpatient -Continue Protonix 40mg PO daily -F/U outpt with Dr. Torres for further screening and testing 2. HTN -Home meds held since pt was NPO 3. DM -ISS, BGM while pt on floor -Pt states he uses Lantus 20u at night and blood glucose levels have been good at home 4. DVT ppx -SCDs -Heparin 5000u SC BID held 5. Dispo -Pt stable -Tolerating PO diet w/o N/V/D/C -Discharge home with Rx for Protonix 40mg PO BID x14 days -F/U outpt with PCP, and Dr. Brian Alonzo, MS3
--- NOTE | 2016-05-17 08:49 | DS ---
Physical Exam: SUBJECTIVE: Patient seen and examined at bedside. Tolerating breakfast and tolerated dinner last night. Pt denied pain in abdomen today. Feels close to baseline. OBJECTIVE: Vital Signs Temperature 98.2 F 05/17/16 06:00 Pulse Rate 75 05/17/16 06:00 Respiratory Rate 16 05/17/16 06:00 Blood Pressure 124/76 05/17/16 06:00 O2 Sat by Pulse Oximetry (%) 100 05/16/16 21:00 PHYSICAL EXAM GENERAL: The patient is awake, alert, and fully oriented, in no acute distress. HEAD: Normal with no signs of trauma. EYES: PERRL, extraocular movements intact. No ptosis. ENT: Ears normal, nares patent, moist mucous membranes. NECK: Trachea midline, full range of motion LUNGS: Breath sounds equal, clear to auscultation bilaterally, no wheezes, no crackles, no accessory muscle use. HEART: Regular rate and rhythm, S1, S2 without murmur, rub or gallop. ABDOMEN: mild tenderness in epigastric region, normoactive bowel sounds EXTREMITIES: 2+ pulses, warm, well-perfused, no edema. NEUROLOGICAL: Normal speech, gait not observed. PSYCH: Normal mood, normal affect. SKIN: Warm, dry, normal turgor, no rashes or lesions noted LABS Laboratory Results - last 24 hr 05/16/16 05/16/16 05/16/16 12:00 17:18 21:21 POC Glucometer 100 343 205 05/17/16 06:13 POC Glucometer 304 HOSPITAL COURSE: Date of Admission:05/16/16 Date of Discharge: 05/17/16 51 y/o M with sig PMH of DM, HTN, chronic pancreatitis, biliary stricture s/p stenting, presented to ER with 10/10 abd pain that was non-radiating and located in the epigastric region for the last 3 days. Pt had 3-4 loose BMs and did not eat for 3 days due to pain and nausea/vomiting. Pt has hx of acute cholecystitis in july 2015 where he was medically managed and was to f/u for lap reinaldo as outpatient which he did not do. He denied fevers, did not have WBC count, CT abd showed multiple calcifications in pancreas, dilated pancreatic duct (5cm), CBD dilated at 11 mm, no stones in gallbladder seen. RUQ U/S also showed CBD dilation of 11 mm. Lipase was wnl. Pt was treated with IVF , protonix, and was NPO initially. GI (Dr. Torres) started pt on clear liquids , tolerated diet, then had regular diet which he also tolerated. ABx given in ER but were stopped when he was on floors as it did not look like an infective process. Surgery (dr. Andujar) also saw pt and recommeded pt go to tertiary [facility] for further management of cholecystitis/possible surgery for cholesystectomy. Pt seemed to most likely had alcoholic gastritis as he improved quickly and tolerated diet. Pt to be discharged with protonix 40 mg bid , to f/u with PCP, f/u with Dr. torres for MRCP and colonscopy, and counseled on alcohol cessation. Minutes to complete discharge: 37 <Will Delacruz - Last Filed: 05/17/16 10:37> Physical Exam: ATTENDING PHYSICIAN STATEMENT I saw and evaluated the patient. I reviewed the resident's note and discussed the case with the resident. I agree with the resident's findings and plan as documented. SUBJECTIVE: seen and evaluated at the bedside OBJECTIVE: mild mid-epigastric tenderness to palpation; no guarding no rebound ASSESSMENT AND PLAN: 51 yo M with significant PMHx of DM, HTN, and chronic pancreatits admitted for severe abdominal pain Abd Pain -was initially thought to be acute on chronic pancreatitis (would not expect marked elevated lipase with chronic pancreatitis) -GI consult greatly appreciated; GI attending believes that because of the rapidity of improvement that most likely cause was gastritis -now on liquid diet and to advance to low fat diet for dinner -surgery consult greatly appreciated as well; recs are for elective cholecystectomy at [facility] -tolerating diet well and is for discharge today <Mani Sweeney - Last Filed: 05/17/16 19:08> Discharge Summary Reason For Visit: CHRONIC ALCOHOLIC PANCREATITIS CBD Current Active Problems Abdominal pain (Acute) DVT prophylaxis (Acute) Gastroduodenitis (Acute) Hypokalemia (Acute) Hypomagnesemia (Acute) Chronic alcoholic pancreatitis (Chronic) Common bile duct (CBD) stricture (Chronic) HTN (hypertension) (Chronic) Hyperglycemia (Chronic) - Home Medications Comprehensive Discharge Medication List: Ambulatory Orders Amlodipine Besylate [Norvasc -] 10 mg PO DAILY 05/16/16 Diazepam 5 mg PO ASDIR PRN 05/16/16 Insulin Glargine,Hum.rec.anlog [Lantus Solostar PEN -] 20 units SQ AM 05/16/16 Losartan Potassium [Cozaar -] 50 mg PO DAILY 05/16/16 Pantoprazole Sodium [Protonix -] 40 mg PO DAILY #30 tablet.ec 05/16/16 <Will Delacruz - Last Filed: 05/17/16 10:37> - Home Medications Comprehensive Discharge Medication List: Ambulatory Orders Amlodipine Besylate [Norvasc -] 10 mg PO DAILY 05/16/16 Diazepam 5 mg PO ASDIR PRN 05/16/16 Insulin Glargine,Hum.rec.anlog [Lantus Solostar PEN -] 20 units SQ AM 05/16/16 Losartan Potassium [Cozaar -] 50 mg PO DAILY 05/16/16 Pantoprazole Sodium [Protonix -] 40 mg PO DAILY #30 tablet.ec 05/16/16 <Mani Sweeney - Last Filed: 05/17/16 19:08> Condition: Stable - Instructions Diet, Activity, Other Instructions: Your abdominal pain has most likely stemmed from your recent alcohol use. It is imperative you avoid alcohol use to avoid gastrointestinal issues. You will need to follow up with your primary care physician within 1 week. You will also need to follow up with Dr. Torres to for an open MRCP and colonoscopy for cancer screening. Make an appointment to see Dr. Torres within 1 week. You will also need to go to a tertiary care center such as [facility] for example for further evaluation and possible surgical removal of your gallbladder. You will need to take protonix (pantoprazole) 40 mg twice a day and discontinue the use of pepcid. This medication and any changes to its use can be discussed with Dr. Torres in his office. If you develop any worsening abdominal pain, fevers, or chills call your doctor or come to the ER. Referrals: Juancarlos Torres MD [Staff Physician] - 1 Week Domenica Chaves MD [Primary Care Provider] - 1 Week Disposition: HOME Problem List - Problems (1) Chronic alcoholic pancreatitis Code(s): K86.0 - ALCOHOL-INDUCED CHRONIC PANCREATITIS (2) Common bile duct (CBD) stricture Code(s): K83.1 - OBSTRUCTION OF BILE DUCT (3) HTN (hypertension) Code(s): I10 - ESSENTIAL (PRIMARY) HYPERTENSION Qualifiers: Hypertension type: essential hypertension Qualified Code(s): I10 - Essential (primary) hypertension (4) Hyperglycemia Code(s): R73.9 - HYPERGLYCEMIA, UNSPECIFIED (5) Hypokalemia Code(s): E87.6 - HYPOKALEMIA (6) Hypomagnesemia Code(s): E83.42 - HYPOMAGNESEMIA (7) Abdominal pain Code(s): R10.9 - UNSPECIFIED ABDOMINAL PAIN (8) Hyponatremia Code(s): E87.1 - HYPO-OSMOLALITY AND HYPONATREMIA <Will Delacruz - Last Filed: 05/17/16 10:37> This patient is new to me today: No Emergency Visit: Yes ED Registration Date: 05/16/16 Care time: The patient presented to the Emergency Department on the above date and was hospitalized for further evaluation of their emergent condition. Critical Care patient: No - Discharge Referral Referred to [facility] No <Will Delacruz - Last Filed: 05/17/16 10:37>
[2016-05-17] MEDS: PANTOPRAZOLE 40 MG TABLET (FP) PO SCH (10:20)
== END 2016-05-17 13:52 | disposition home or self-care (01) | DRG 438 ==
LOC: JER 00:53 → JERBED 05:01 → J8W 08:13
PROVIDERS: ADMIT Internal Medicine; ATTEND Internal Medicine
DX: K86.0 Alcohol-induced chronic pancreatitis (principal); K83.1 Obstruction of bile duct; E87.1 Hypo-osmolality and hyponatremia; I10 Essential (primary) hypertension; E87.6 Hypokalemia; E83.42 Hypomagnesemia; K29.90 Gastroduodenitis, unspecified, without bleeding; E11.65 Type 2 diabetes mellitus with hyperglycemia; K27.9 Peptic ulcer, site unspecified, unspecified as acute or chronic, without hemorrhage or perforation; M54.5 Low back pain; M51.36 Other intervertebral disc degeneration, lumbar region; K80.50 Calculus of bile duct without cholangitis or cholecystitis without obstruction; K82.4 Cholesterolosis of gallbladder; Z86.73 Personal history of transient ischemic attack (TIA), and cerebral infarction without residual deficits; Z79.4 Long term (current) use of insulin
CPT/HCPCS: 36415; 71275-TC; 74177-TC; 76705-TC; 80053; 82550; 82553; 83605; 83690; 83735; 84484; 85025; 85610; 85730; 86850; 86900; 86901; 93005; 93010; 97116-GP; 97161-GP; 99283-25; G0008; Q2037

== ENCOUNTER 2016-07-03 07:19 | Emergency (ER) | payer MEDICARE ==
[2016-07-03 08:01] VITALS: BP 122/80; PULSE 101; TEMP 98.2; BMI 20.9
--- NOTE | 2016-07-03 08:51 | PDOC ---
History of Present Illness - General Chief Complaint: Pain Stated Complaint: RT SHOULDER PAIN Time Seen by Provider: 07/03/16 08:25 History Source: Patient Exam Limitations: No Limitations - History of Present Illness Initial Comments: CHIEF COMPLAINT: 51 y/o afebrile male c/o right shoulder pain x 2 months. HISTORY OF PRESENT ILLNESS: The patient admits he had similar pain last year and was sent for an MRI which showed arthritis. He states the pain eventually subsided but returned 2 months ago. He states it really hurts when he rolls over on it in his sleep and he can't lift much. He has percocet and valium at home for the pain but hasn't taken them because he doesn't like how they make him feel. He denies f/c, n/v/d, neck pain, numbness/tingling in right arm/ hand. He is right hand dominant. Vital signs on arrival are notable for pulse of 101. REVIEW OF SYSTEMS: GENERAL/CONSTITUTIONAL: No fever/chills. No weakness. No weight change. MUSCULOSKELETAL: +right shoulder pain. No neck or back pain. SKIN: No rash or easy bruising. NEUROLOGIC: No headache, vertigo, loss of consciousness, or loss of sensation. PHYSICAL EXAM: VITAL_SIGNS: within normal limits GENERAL_APPEARANCE: alert, cooperative, moderate obvious discomfort with arm movements. MENTAL_STATUS: speech clear, oriented X 3, responds appropriately to questions. NEURO: motor intact and sensory intact in injured extremity. EXTREMITIES: good pulse in injured extremity. TTP of right AC joint. No tenting or deformities to right clavicle. Pt cannot abduct right arm >90 degrees. He cannot lift his right arm over his right shoulder secondary to pain. 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 SKIN: warm, dry, good color. Past History - Past Medical History Allergies/Adverse Reactions: Allergies Allergy/AdvReac Type Severity Reaction Status Date / Time atorvastatin calcium Allergy Hives Verified 07/03/16 07:34 [From Lipitor] lisinopril Allergy Verified 07/03/16 07:34 Home Medications: Ambulatory Orders Amlodipine Besylate [Norvasc -] 10 mg PO DAILY 05/16/16 Diazepam 5 mg PO ASDIR PRN 05/16/16 Insulin Glargine,Hum.rec.anlog [Lantus Solostar PEN -] 20 units SQ AM 05/16/16 Losartan Potassium [Cozaar -] 50 mg PO DAILY 05/16/16 Pantoprazole Sodium [Protonix -] 40 mg PO DAILY #30 tablet.ec 05/16/16 Anemia: No Asthma: No Cancer: No Cardiac Disorders: Yes (IRREGULAR HEART BEAT) CVA: Yes (TIA) COPD: No CHF: No Dementia: No Diabetes: Yes GI Disorders: Yes (GASTRIC ULCER; BILE DUCT STRICTURE-STENTS) Disorders: No HTN: Yes Hypercholesterolemia: Yes Liver Disease: No Suicide Attempt (Hx): No Seizures: No Thyroid Disease: No - Surgical History Abdominal Surgery: Yes Appendectomy: No Cardiac Surgery: No Cholecystectomy: Yes (BILIARY 3 STENTS) Lung Surgery: No Neurologic Surgery: No Orthopedic Surgery: No - Psycho/Social/Smoking Cessation Hx Anxiety: No Suicidal Ideation: No Smoking Status: No Smoking History: Current every day smoker Years of Tobacco Use: 30 Have you smoked in the past 12 months: Yes Number of Cigarettes Smoked Daily: 9 Cigars Per Day: 0 Information on smoking cessation initiated: No 'Breaking Loose' booklet given: 05/16/16 Hx Alcohol Use: Yes (beer, vodka) Drug/Substance Use Hx: Yes Substance Use Type: Alcohol Hx Substance Use Treatment: No *Physical Exam - Vital Signs Last Vital Signs Temp Pulse Resp BP Pulse Ox 98.2 F 101 H 19 122/80 97 07/03/16 07:34 07/03/16 07:34 07/03/16 07:34 07/03/16 07:34 07/03/16 07:34 Medical Decision Making - Medical Decision Making A/P: 51 y/o male with right rotator cuff injury. He cannot take NSAIDs because of cardiac stents. Provided him with sling, ortho referral and suggestion for PHysical therapy follow up. Suggested patient at least take valium at bedtime for help with sleeping. The patient verbalizes understanding of all instructions, has no further questions and is awaiting discharge. *DC/Admit/Observation/Transfer Diagnosis at time of Disposition: Rotator cuff injury Qualifiers: Encounter type: initial encounter Laterality: right Qualified Code(s): S46.001A - Unspecified injury of muscle(s) and tendon(s) of the rotator cuff of right shoulder, initial encounter - Discharge Dispostion Disposition: HOME Condition at time of disposition: Good - Referrals Referrals: Domenica Chaves MD [Primary Care Provider] - Evan Duran MD [Staff Physician] - Call tomorrow - Patient Instructions Printed Discharge Instructions: How to Use a Sling, How To Perform RICE (Rest, Ice, Compress, Elevate), DI for Rotator Cuff Injury Additional Instructions: Discharge Instructions: -Take the pain medication you have at home as prescribed if needed -Use the sling as needed for comfort -Walk your right hand up the wall multiple times per day to keep your shoulder mobile -No heavy lifting -Follow up with Dr. Duran and a physical therapist as soon as possible -Return to the ER with any worsening or concerning symptoms
== END 2016-07-03 16:35 | disposition home or self-care (01) ==
LOC: JERFT 07:19 → JER 07:19 → JERFT 16:35
DX: S46.011A Strain of muscle(s) and tendon(s) of the rotator cuff of right shoulder, initial encounter (principal); I10 Essential (primary) hypertension; E11.9 Type 2 diabetes mellitus without complications; E78.00 Pure hypercholesterolemia, unspecified; Z86.69 Personal history of other diseases of the nervous system and sense organs; X58.XXXA Exposure to other specified factors, initial encounter; Y93.89 Activity, other specified; Y92.89 Other specified places as the place of occurrence of the external cause
CPT/HCPCS: 99281-25

== ENCOUNTER 2016-11-21 08:10 | Emergency (ER) | payer MEDICARE ==
[2016-11-21 08:20] VITALS: BP 146/94; PULSE 114; TEMP 98; BMI 21.9
[2016-11-21] MEDS ORDERED: KETOROLAC TROMETHAMINE 60 MG/2 ML VIAL IM ONE (08:35)
[2016-11-21] MEDS ORDERED: diazePAM 5 MG TABLET PO ONE (08:35)
--- NOTE | 2016-11-21 08:46 | PDOC ---
History of Present Illness - General Chief Complaint: Back Pain Stated Complaint: PAIN/ BACK, KNEE Time Seen by Provider: 11/21/16 08:21 History Source: Patient Exam Limitations: No Limitations - History of Present Illness Initial Comments: 11/21/16 08:36 CHIEF COMPLAINT: Lower back pain HISTORY OF PRESENT ILLNESS: 51-year-old male, history of 2 herniated discs, hypertension and diabetes presents with low back pain and spasm. Pain radiating down left leg. Patient reports that he had 2 herniated disks in the past, usually has pain for 2-3 days which resolved on its own however he was at the hospital when his son sitting for prolonged periods of time stood up and had pain to back for the last 2 weeks. Has attempted to take percocet without resolve. Pain is radiating down tothe left leg, no neurosensory deficits, no bowel or bladder difficulty incontinence or urinary retention, no saddle anesthesia, no footdrop. No history of IVDU or history of cancer. REVIEW OF SYSTEMS: GENERAL: Afebrile, denies any weakness RESPIRATORY: No cough, wheezing, or hemoptysis. CARDIAC: No chest pain or shortness of breath MUSCULOSKELETAL: Pain to generalized lower back. No point tenderness. Pain worse on left then right. SKIN : No erythema, no bruising, no deformity. GI/: Denies any abdominal pain, no urinary difficulty, incontinence or urinary retention. RECTAL: Denies any difficulty this A.m. NEUROLOGICAL: Denies any numbness or tingling. No neurosensory deficits. PHYSICAL EXAM: GENERAL: The patient is awake, alert, and fully oriented, in no acute distress. RESPIRATORY: Lungs clear bilaterally, no rhonchi wheezes or crackles CARDIAC: S1-S2 audible, no murmur rub or gallop MUSCULOSKELETAL: Pain to generalized lower back, nonradiating, no tingling or sensory deficit. Less than 2 second cap refill, +4 popliteal and pedal pulses. GI/: Abdomen soft, nontender, nondistended. No rebound tenderness. No masses palpable. MUSCULOSKELETAL: No spinal point tenderness. Left paraspinal pain, Normal reflexive and no deficits to sensation or strength. RECTAL: Normal Rectal Tone. SKIN: Warm, Dry, normal turgor, no erythema, no edema no bruising. 11/21/16 10:24 Past History - Past Medical History Allergies/Adverse Reactions: Allergies Allergy/AdvReac Type Severity Reaction Status Date / Time atorvastatin calcium Allergy Hives Verified 11/21/16 08:20 [From Lipitor] lisinopril Allergy Verified 11/21/16 08:20 Home Medications: Ambulatory Orders Amlodipine Besylate [Norvasc -] 10 mg PO DAILY 05/16/16 Diazepam 5 mg PO ASDIR PRN 05/16/16 Insulin Glargine,Hum.rec.anlog [Lantus Solostar PEN -] 20 units SQ AM 05/16/16 Losartan Potassium [Cozaar -] 50 mg PO DAILY 05/16/16 Pantoprazole Sodium [Protonix -] 40 mg PO DAILY #30 tablet.ec 05/16/16 Cyclobenzaprine HCl [Flexeril -] 10 mg PO TID #21 tablet 11/21/16 Methylprednisolone [Medrol Dose Branden] 4 mg PO ASDIR #21 tablet 11/21/16 Anemia: No Asthma: No Cancer: No Cardiac Disorders: Yes (IRREGULAR HEART BEAT, cardiac stents (removed)) CVA: Yes (TIA) COPD: No CHF: No Dementia: No Diabetes: Yes GI Disorders: Yes (GASTRIC ULCER; BILE DUCT STRICTURE-STENTS) Disorders: No HTN: Yes Hypercholesterolemia: Yes Liver Disease: No Suicide Attempt (Hx): No Seizures: No Thyroid Disease: No - Surgical History Abdominal Surgery: Yes Appendectomy: No Cardiac Surgery: No Cholecystectomy: Yes (BILIARY 3 STENTS) Lung Surgery: No Neurologic Surgery: No Orthopedic Surgery: No - Psycho/Social/Smoking Cessation Hx Anxiety: No Suicidal Ideation: No Smoking Status: No Smoking History: Never smoked Years of Tobacco Use: 30 Have you smoked in the past 12 months: Yes Number of Cigarettes Smoked Daily: 9 Cigars Per Day: 0 'Breaking Loose' booklet given: 05/16/16 Hx Alcohol Use: No Drug/Substance Use Hx: No Substance Use Type: None Hx Substance Use Treatment: No *Physical Exam - Vital Signs Last Vital Signs Temp Pulse Resp BP Pulse Ox 98.0 F 114 H 146/94 98 11/21/16 08:16 11/21/16 08:16 11/21/16 08:16 11/21/16 08:16 Medical Decision Making - Medical Decision Making 11/21/16 09:34 A/P: Patient here for evaluation of exacerbation of back pain, with lumbar radiculopathy. Patient with history of the same. Patient only has Percocet at home which is not relieving pain, patient has been having this pain for 2 weeks and is using a cane now to ambulate. Plan: Toradol 60 mg IM and Valium 5 mg by mouth, will then reevaluate 11/21/16 11:29 Patient states still with pain, x-rays were performed demonstrated moderately severe narrowing of the disc space at L5-S1, mild compression of L1. Based upon patient's clinical examination most likely chronic, patient with no neurological deficits to bilateral lower extremities. I'm going to DC patient home with follow-up with Dr. rivera, ice to lower back, Medrol Dosepak with frequent monitoring of sugars every 4 hours. Patient will monitor sugars and cover himself with his insulin. Flexeril. I discussed the physical exam findings, ancillary test results and final diagnoses with the patient. I answered all of the patient's questions. The patient was satisfied with the care received and felt comfortable with the discharge plan and treatment plan. The patient will call to arrange follow-up and will return to the Emergency Department with any new, persistent or worsening symptoms. *DC/Admit/Observation/Transfer Diagnosis at time of Disposition: Lumbar back pain with radiculopathy affecting left lower extremity - Discharge Dispostion Disposition: HOME Condition at time of disposition: Good Admit: No - Prescriptions Prescriptions: Cyclobenzaprine HCl [Flexeril -] 10 mg PO TID #21 tablet Methylprednisolone [Medrol Dose Branden] 4 mg PO ASDIR #21 tablet - Referrals Referrals: Domenica Chaves MD [Primary Care Provider] - Tim Rivera MD [Staff Physician] - - Patient Instructions Additional Instructions: 1. Please return to the emergency department with any numbness, tingling, weakness, numbness or tingling to groin or legs, or loss of bowel or bladder function. 2. Use pain medication as ordered. 3. Please is to followup in the office of Dr. Rivera for evaluation within a week if no improvement. 4. Ice or heat 5. Refrain from lifting anything above 10 pounds, until pain resolved.
[2016-11-21] MEDS ORDERED: KETOROLAC TROMETHAMINE 60 MG/2 ML VIAL ONE (08:48)
[2016-11-21] MEDS ORDERED: diazePAM 5 MG TABLET ONE (08:49)
== END 2016-11-21 11:41 | disposition home or self-care (01) ==
LOC: JERFT 08:10
PROC: 3E0 Administration, Physiological Systems and Anatomical Regions, Introduction (ICD-10-PCS; principal; 2016-11-21)
DX: M54.16 Radiculopathy, lumbar region (principal); I10 Essential (primary) hypertension; Z79.4 Long term (current) use of insulin; Z86.73 Personal history of transient ischemic attack (TIA), and cerebral infarction without residual deficits; E78.00 Pure hypercholesterolemia, unspecified
CPT/HCPCS: 72100-TC; 73523-TC; 96372; 99281-25

== ENCOUNTER 2017-03-08 21:26 | Emergency (ER) | payer MEDICARE, OTHER ==
[2017-03-08 21:47] VITALS: BP 138/78; PULSE 67; TEMP 98.7; BMI 20.3
--- NOTE | 2017-03-08 22:11 | PDOC ---
History of Present Illness - General Chief Complaint: Alcohol intoxication Stated Complaint: Altered Mental Status Time Seen by Provider: 03/08/17 21:55 History Source: Patient, Significant Other Exam Limitations: No Limitations - History of Present Illness Initial Comments: 03/08/17 22:22 52 yo M h/o hyperlipidemia, IDDM, Htn presents to the ER c/o feeling sick after ingesting a 24oz beer this evening. Patient states he was dizzy this afternoon which has subsided. Patient denies any headache, lightheadedness, visual disturbance, diplopia, facial pains, neck pain/stiffness, back pains, chest pain , shortness of breath, abdominal pains, flank pains, urinary symptoms, Franki numbness or tingling sensation. Past History - Past Medical History Allergies/Adverse Reactions: Allergies Allergy/AdvReac Type Severity Reaction Status Date / Time atorvastatin calcium Allergy Hives Verified 03/08/17 21:45 [From Lipitor] lisinopril Allergy Verified 03/08/17 21:45 Home Medications: Ambulatory Orders Amlodipine Besylate [Norvasc -] 10 mg PO DAILY 05/16/16 Diazepam 5 mg PO ASDIR PRN 05/16/16 Insulin Glargine,Hum.rec.anlog [Lantus Solostar PEN -] 20 units SQ AM 05/16/16 Losartan Potassium [Cozaar -] 50 mg PO DAILY 05/16/16 Pantoprazole Sodium [Protonix -] 40 mg PO DAILY #30 tablet.ec 05/16/16 Cyclobenzaprine HCl [Flexeril -] 10 mg PO TID #21 tablet 11/21/16 Methylprednisolone [Medrol Dose Branden] 4 mg PO ASDIR #21 tablet 11/21/16 Anemia: No Asthma: No Cancer: No Cardiac Disorders: Yes (IRREGULAR HEART BEAT, cardiac stents (removed)) CVA: Yes (TIA) COPD: No CHF: No Dementia: No Diabetes: Yes GI Disorders: Yes (GASTRIC ULCER; BILE DUCT STRICTURE-STENTS) Disorders: No HTN: Yes Hypercholesterolemia: Yes Liver Disease: No Seizures: No Thyroid Disease: No - Surgical History Abdominal Surgery: Yes Appendectomy: No Cardiac Surgery: No Cholecystectomy: Yes (BILIARY 3 STENTS) Lung Surgery: No Neurologic Surgery: No Orthopedic Surgery: No - Suicide/Smoking/Psychosocial Hx Smoking Status: No Smoking History: Unknown if ever smoked Years of Tobacco Use: 30 Have you smoked in the past 12 months: No Number of Cigarettes Smoked Daily: 9 Cigars Per Day: 0 Information on smoking cessation initiated: No 'Breaking Loose' booklet given: 05/16/16 Hx Alcohol Use: Yes Drug/Substance Use Hx: No Substance Use Type: None Hx Substance Use Treatment: No Review of Systems - Review of Systems Able to Perform ROS?: Yes Comments:: 03/08/17 23:39 CONSTITUTIONAL: Absent: fever, chills, diaphoresis, generalized weakness, malaise, loss of appetite HEENT: Absent: rhinorrhea, nasal congestion, throat pain, throat swelling, difficulty swallowing, mouth swelling, ear pain, eye pain, visual Changes CARDIOVASCULAR: Absent: chest pain, loss of consciousness, palpitations, irregular heart rate, peripheral edema RESPIRATORY: Absent: cough, shortness of breath, dyspnea with exertion, orthopnea, wheezing, stridor, hemoptysis GASTROINTESTINAL: Absent: abdominal pain, abdominal distension, nausea, vomiting, diarrhea, constipation, melena, hematochezia GENITOURINARY: Absent: dysuria, frequency, urgency, hesitancy, hematuria, flank pain, genital pain MUSCULOSKELETAL: Absent: myalgia, arthralgia, joint swelling SKIN: Absent: rash, itching, pallor HEMATOLOGIC/IMMUNOLOGIC: Absent: easy bleeding, easy bruising, lymphadenopathy, frequent infections ENDOCRINE: Absent: unexplained weight gain, unexplained weight loss, heat intolerance, cold intolerance NEUROLOGIC: +dizziness/subsided Absent: headache, focal weakness or paresthesias, unsteady gait, seizure, mental status changes, bladder or bowel incontinence PSYCHIATRIC: Absent: anxiety, depression, suicidal or homicidal ideation, hallucinations. Is the patient limited Cymraes proficient: No *Physical Exam - Vital Signs Last Vital Signs Temp Pulse Resp BP Pulse Ox 98.7 F 67 14 138/78 97 03/08/17 21:45 03/08/17 21:45 03/08/17 21:45 03/08/17 21:45 03/08/17 21:45 - Physical Exam Comments: 03/08/17 23:40 GENERAL: Well developed, well nourished. Awake and alert. No acute distress. HEENT: Normocephalic, atraumatic. PERRLA, EOMI. No conjunctival pallor. Sclera are non- icteric. Moist mucous membranes. Oropharynx is clear. NECK: Supple. Full ROM. No JVD. Carotid pulses 2+ and symmetric, without bruits. No thyromegaly. No lymphadenopathy. CARDIOVASCULAR: Regular rate and rhythm. No murmurs, rubs, or gallops. Distal pulses are 2+ and symmetric. PULMONARY: No evidence of respiratory distress. Lungs clear to auscultation bilaterally. No wheezing, rales or rhonchi. ABDOMINAL: Soft. Non-tender. Non-distended. No rebound or guarding. No organomegaly. Normoactive bowel sounds. MUSCULOSKELETAL Normal range of motion at all joints. No bony deformities or tenderness. No CVA tenderness. EXTREMITIES: No cyanosis. No clubbing. No edema. No calf tenderness. SKIN: Warm and dry. Normal capillary refill. No rashes. No jaundice. NEUROLOGICAL: Alert, awake, appropriate. Cranial nerves 2-12 intact. No deficits to light touch and temperature in face, upper extremities and lower extremities. No motor deficits in the in face, upper extremities and lower extremities. Normoreflexic in the upper and lower extremities. Normal speech. Toes are down- going bilaterally. Gait is normal without ataxia. PSYCHIATRIC: Cooperative. Good eye contact. Appropriate mood and affect. ED Treatment Course - LABORATORY CBC & Chemistry Diagram: 03/08/17 22:10 03/08/17 22:10 - RADIOLOGY Radiograph Interpretation: 03/09/17 02:18 CT head w/o contrast: Neg *DC/Admit/Observation/Transfer Diagnosis at time of Disposition: Dizziness Alcohol intoxication Qualifiers: Complication of substance-induced condition: with unspecified complication Qualified Code(s): F10.929 - Alcohol use, unspecified with intoxication, unspecified - Discharge Dispostion Disposition: HOME Condition at time of disposition: Stable Admit: No - Referrals Referrals: Domenica Chaves MD [Primary Care Provider] - - Patient Instructions Printed Discharge Instructions: DI for Alcohol Abuse, DI for Dizziness- Nonvertigo Additional Instructions: Rest Follow up with your physician Alcohol abstinence suggested Return to the ER for severe/persistent/worsening symptoms - Post Discharge Activity Progress Note - Progress Note Progress Note: 0224hrs: Pt ambulating in the ER without difficulty. Pt wishes to be d/c. Pt is a&o x3. Pt's significant other will brin patsyim home. Pt has no complaints. Pt denies dizziness
[2017-03-08] MEDS ORDERED: SODIUM CHLORIDE 1,000 ML IV STA (22:12)
[2017-03-08 22:36] LABS: BASOPHIL 0.8 % (0-2.0); EOSINOPHIL 7.6 % (0-4.5); MCH 31.9 pg (25.7-33.7); MCHC 34.4 g/dl (32.0-35.9); MEAN CELL VOLUME 92.8 fl (80-96); MEAN PLT VOLUME 7.4 fl (7.5-11.1); NEUTROPHILS 56.2 % (42.8-82.8); PLATELET COUNT 278 K/MM3 (134-434); RDW 15.8 % (11.9-15.9); WHITE BLOOD COUNT 7.9 K/mm3 (4.0-10.0)
--- NOTE | 2017-03-08 22:41 | PDOC ---
*Physical Exam - Vital Signs Last Vital Signs Temp Pulse Resp BP Pulse Ox 98.7 F 67 14 138/78 97 03/08/17 21:45 03/08/17 21:45 03/08/17 21:45 03/08/17 21:45 03/08/17 21:45 - Physical Exam Comments: 03/08/17 22:40 The patient was examined by [ANGELO Serna] under my direct supervision. I personally evaluated the patient. I concur with the above findings and the plan of care. ED Treatment Course - LABORATORY CBC & Chemistry Diagram: 03/08/17 22:10 03/08/17 22:10 *DC/Admit/Observation/Transfer - Referrals Referrals: Domenica Chaves MD [Primary Care Provider] - - Patient Instructions - Post Discharge Activity
[2017-03-08 23:10] LABS: ALBUMIN 3.8 g/dl (3.4-5.0); ANION GAP 10 (8-16); BILIRUBIN,TOTAL 0.4 mg/dL (0.2-1.0); CALCIUM 8.2 mg/dL (8.5-10.1); CO2 28 mmol/L (21-32); CREATININE 0.8 mg/dL (0.7-1.3); GLUCOSE,RANDOM 252 mg/dL (74-106); SGOT/AST 64 U/L (15-37); SGPT/ALT 61 U/L (12-78); TOT PROT 7.3 g/dl (6.4-8.2)
[2017-03-08 23:11] LABS: ALK PHOS 171 U/L (45-117)
[2017-03-08] MEDS ORDERED: FOLIC ACID INJECTION - 1 MG, THIAMINE HCL 100 MG, MULTIVIT INJECTION ADULT 10 ML in SOD... IVPB ONE (23:38)
== END 2017-03-09 02:42 | disposition home or self-care (01) ==
LOC: JER 21:26
PROC: 3E03329 Introduction of Other Anti-infective into Peripheral Vein, Percutaneous Approach (ICD-10-PCS; principal; 2017-03-08)
PROC: 3E0337Z Introduction of Electrolytic and Water Balance Substance into Peripheral Vein, Percutaneous Approach (ICD-10-PCS; 2017-03-08)
DX: F10.929 Alcohol use, unspecified with intoxication, unspecified (principal); E11.9 Type 2 diabetes mellitus without complications; I10 Essential (primary) hypertension; E78.00 Pure hypercholesterolemia, unspecified; Z95.5 Presence of coronary angioplasty implant and graft
CPT/HCPCS: 36415; 70450-TC; 80053; 80307; 85025; 96361; 96365; 99282-25

== ENCOUNTER 2017-09-01 11:19 | Emergency (ER) | payer MEDICARE ==
[2017-09-01 11:26] VITALS: BP 138/97; PULSE 110; TEMP 97; BMI 19.0
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
[2017-09-01] MEDS ORDERED: IBUPROFEN 400 MG TABLET (FP) PO ONE ×2 (11:51)
== END 2017-09-01 12:30 | disposition home or self-care (01) ==
LOC: JERFT 11:19
DX: S20.212A Contusion of left front wall of thorax, initial encounter (principal); Y04.2XXA Assault by strike against or bumped into by another person, initial encounter; Y93.89 Activity, other specified; Y92.811 Bus as the place of occurrence of the external cause; Y99.8 Other external cause status
CPT/HCPCS: 71046-TC-FY; 71101-TC-FY; 99281-25

== ENCOUNTER 2018-10-05 22:16 | Emergency (ER) | payer MEDICARE, OTHER ==
[2018-10-05 22:34] VITALS: BMI 25.0
--- NOTE | 2018-10-05 23:25 | PDOC ---
History of Present Illness - General Chief Complaint: Injury Stated Complaint: FALL Time Seen by Provider: 10/05/18 22:45 - History of Present Illness Initial Comments: 10/06/18 04:31 53yo M hx alcohol abuse with associated memory issues, HTN, DM, CAD s/p stents, CVA (yrs ago) w/o residual deficitys, herniated discs, and frequent falls c/o R rib pain s/p unwitnessed fall. Pt fell 2 days ago but doesn't remember how, but since then he has had worsening R lateral rib pain, worse with breathing, sharp , constant. Endorses difficulty taking deep breaths 2/2 pain. Pt doesn't remember details of fall. Pt also told his mat roller in room that he hit his head on the fridge today, but he doesn't remember telling her this now. Denies LOC, vomiting, headache, blood thinner use, other injuries, cough, palpitations , CP, abdominal pain, blood in stool or urine, dysuria, numbness/tingling, weakness. Pt uses cane. Took ibuprofen 600mg 2x today for pain. Drinks 6 wine coolers per day, last this evening. Denies drug use. 40 pack-year smoking. Past History - Past Medical History Allergies/Adverse Reactions: Allergies Allergy/AdvReac Type Severity Reaction Status Date / Time atorvastatin calcium Allergy Hives Verified 10/05/18 22:34 [From Lipitor] lisinopril Allergy Verified 10/05/18 22:34 Home Medications: Ambulatory Orders Amlodipine Besylate [Norvasc -] 10 mg PO DAILY 05/16/16 Diazepam 5 mg PO ASDIR PRN 05/16/16 Insulin Glargine,Hum.rec.anlog [Lantus Solostar PEN -] 20 units SQ AM 05/16/16 Losartan Potassium [Cozaar -] 50 mg PO DAILY 05/16/16 Pantoprazole Sodium [Protonix -] 40 mg PO DAILY #30 tablet.ec 05/16/16 Cyclobenzaprine HCl [Flexeril -] 10 mg PO TID #21 tablet 11/21/16 Methylprednisolone [Medrol Dose Branden] 4 mg PO ASDIR #21 tablet 11/21/16 Ibuprofen 800 mg PO TID #30 tablet 09/01/17 Anemia: No Asthma: No Cancer: No Cardiac Disorders: Yes (IRREGULAR HEART BEAT, cardiac stents (removed)) CVA: Yes (TIA) COPD: No CHF: No Dementia: No Diabetes: Yes GI Disorders: Yes (GASTRIC ULCER; BILE DUCT STRICTURE-STENTS) Disorders: No HTN: Yes Hypercholesterolemia: Yes Liver Disease: No Seizures: No Thyroid Disease: No - Surgical History Abdominal Surgery: Yes Appendectomy: No Cardiac Surgery: No Cholecystectomy: Yes (BILIARY 3 STENTS) Lung Surgery: No Neurologic Surgery: No Orthopedic Surgery: No - Suicide/Smoking/Psychosocial Hx Smoking Status: No Smoking History: Never smoked Years of Tobacco Use: 30 Have you smoked in the past 12 months: No Number of Cigarettes Smoked Daily: 9 Cigars Per Day: 0 Information on smoking cessation initiated: No 'Breaking Loose' booklet given: 05/16/16 Hx Alcohol Use: Yes Drug/Substance Use Hx: No Substance Use Type: None Hx Substance Use Treatment: No Review of Systems - Review of Systems Comments:: 10/06/18 05:45 Constitutional: Negative for chills, fever, fatigue. HENT: Positive for head trauma. Negative for sore throat, rhinorrhea, congestion. Eyes: Negative for visual disturbance. Respiratory: Positive for pain with inspiration. Negative for shortness of breath, cough, and wheezing. Cardiovascular: Negative for chest pain, palpitations, and leg swelling. Gastrointestinal: Negative for abdominal pain, blood in stool, constipation, diarrhea, nausea, and vomiting. Genitourinary: Negative for dysuria, flank pain, and hematuria. Musculoskeletal: Positive for R rib pain. Negative for myalgias, back pain, and neck pain. Skin: Negative for rash. Neurological: Negative for light-headedness, dizziness, syncope, weakness, numbness and headaches. Psychiatric/Behavioral: Positive for alcohol abuse and memory problems. *Physical Exam - Vital Signs Last Vital Signs Temp Pulse Resp BP Pulse Ox 97.7 F 83 18 123/81 96 10/05/18 22:16 10/05/18 22:16 10/05/18 22:16 10/05/18 22:16 10/05/18 22:16 - Physical Exam Comments: 10/06/18 05:46 Gen: Alert, NAD, comfortable-appearing. HEENT: PERRL, EOMI, bidirectional nystagmus, MMM, NCAT. No conjunctival pallor. Sclera are non-icteric. Oropharynx is clear. CV: Regular rate and rhythm. No murmurs, rubs, or gallops. PULM: No resp distress. Good air movement. CTAB, no wheezes, rales, or rhonchi. ABD: soft, NT/ND, no rebound tenderness or guarding, no CVA tenderness. BACK: No TTP of c/t/l-spine. No step-offs or deformities. MSK: TTP R anterior ribs. No bony deformities. 2+ pulses in all extremities. NEURO: AAOx3. PERRL. Bidirectional nystagmus present. No gross CN deficits. Strength and sensation grossly intact throughout. EXTREMITIES: No cyanosis. No clubbing. No edema. No calf tenderness. No asterixis. PSYCH: Memory difficulties. Normal mood and thought pattern. SKIN: Warm and dry. Normal capillary refill. No rashes. No jaundice. Medical Decision Making - Medical Decision Making 10/06/18 04:49 53yo M hx alcohol abuse with associated memory issues, HTN, DM, CAD s/p stents, CVA (yrs ago) w/o residual deficits, herniated discs, and frequent falls presents with R rib pain and head trauma s/p unwitnessed falls 2 days ago and today. R rib pain concerning for rib fx - obtain XR chest/ribs and CT chest to assess for rib fx, flail chest, pulmonary contusion, PTX, hemothorax, or effusions, although unlikely due to lungs CTAB and good air movement. Due to pt' s alcohol abuse and memory issues, head trauma concerning for possible skull fx , ICH, or c-spine dislocation or fx - obtain CT head and c-spine to r/o. Hemodynamically stable, no focal neuro deficits, no other injuries. Pt does not desire detox. -CBC, CMP -XR chest and ribs; CT chest, head, c-spine -Percocet for pain -Dispo: pending workup Percocet and to CT scan. CT done; cancel XRs. s/p Percocet, feeling a little better but still has pain. CT chest: no PTX, DEAN, or lung contusion, pericardial effusion, mediastinal hematoma, acute fx. Thoracostomy changes R chest. Scarring/postop changes RLL w/ nearby pleural calcification. Expansile changes w/ground glass density R posterior rib 10 could be due to fibrous dysplasia. Pt does not remember if he has had surgery or trauma before in this location. CTH/c-spine negative for acute fx, dislocation, hemorrhage Pt refuses labs. Glucose fingerstick 408 - pt refuses insulin and wants to go home. Informed of risks. Pt is conversant, walking, AAOx4. Informed to take home insulin as prescribed when gets home. Informed of CT findings and need to share these with his primary care doctor at his appt on the . Return precautions given. Pt understands all d/c instructions and all questions were answered. Pt called cab to get home and will go home with his mat roller. Pt d/c' d. *DC/Admit/Observation/Transfer Diagnosis at time of Disposition: Rib pain on right side - Discharge Dispostion Disposition: HOME Condition at time of disposition: Improved Decision to Admit order: No - Referrals Referrals: Jose R Osborne MD [Primary Care Provider] - - Patient Instructions Printed Discharge Instructions: DI for Alcohol Abuse, DI for Rib Contusion Additional Instructions: You have been seen in the Emergency Department for right rib pain after a fall. You refused blood work so we do not have labs for you. Your sugar is very high but you refused medications - take your insulin when you get home. The CT scans of your head and neck show no concerning findings. Your CT scan of your chest shows no broken ribs or new lung problems. There is a an abnormality noted on your CT chest that could be new or old. Follow-up with your primary care doctor as scheduled on October 09 and give him your CT results so he can do further assessments. Return to the ED immediately if you experience chest pain, difficulty breathing, dizziness, or any other new or worsening symptom. - Post Discharge Activity
--- NOTE | 2018-10-06 01:51 | PDOC ---
Documentation entered by Aleta Giles SCRIBE, acting as scribe for Aziza Ha MD. Aziza Ha MD: This documentation has been prepared by the Chan sandoval Sammi, SCRIBE, under my direction and personally reviewed by me in its entirety. I confirm that the documentation accurately reflects all work, treatment, procedures, and medical decision making performed by me. Attending Attestation - Resident Resident Name: Marie Beckham - HPI HPI: 10/05/18 23:59 The patient is a 53 year old male, with a significant PMH of alcohol abuse, who presents to the emergency department for evaluation of right anterior chest pain s/p fall on luggage 2 days ago. The patient also notes earlier today he opened the freezer, then went into the fridge, then stood up and hit his head on the freezer door. The patient is a poor historian and reports last drink this evening. - Physicial Exam PE: 10/06/18 00:00 GENERAL: Thin Well-appearing. No apparent distress. HEENT: No head lacerations, no appreciable abrasion. No midline tenernee Normocephalic, atraumatic. PERRL, EOM intact. CARDIOVASCULAR: Normal S1, S2. Regular rate and rhythm. PULMONARY: Clear to auscultation bilaterally. ABDOMEN: Soft, non-distended, non-tender. MUSCULOSKELETAL: (+) pinpoint tenderness to right anterior rib cage EXTREMITIES: Normal ROM in all four extremities. No gross deformities No tenderness. SKIN: No acute lacerations. Warm, dry. No rash NEUROLOGICAL: Conversant, full ROM of all extremities. - Medical Decision Making 10/06/18 01:38 ct scan head no acute intracranial pathology ct scan c spine no fractures cta chest: no ptx,no rib fractures bgm is elevated to 400. 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
[2018-10-06 02:41] VITALS: BP 141/91; PULSE 78; TEMP 98.7
== END 2018-10-06 01:55 | disposition home or self-care (01) ==
LOC: JER 22:16
DX: R07.81 Pleurodynia (principal); I10 Essential (primary) hypertension; E11.9 Type 2 diabetes mellitus without complications; I25.10 Atherosclerotic heart disease of native coronary artery without angina pectoris; Z95.5 Presence of coronary angioplasty implant and graft; W18.39XA Other fall on same level, initial encounter; Y93.89 Activity, other specified; Y92.89 Other specified places as the place of occurrence of the external cause
CPT/HCPCS: 70450-TC; 71250-TC; 72125-TC; 82962; 99281-25